=== PATIENT | male | born 1945 | race Caucasian/White ===

== ENCOUNTER 2018-01-04 09:02 | Inpatient (IN) | payer BC ==
[2018-01-02 17:07] LABS: BASOPHILS % 0.4 % (0.0-1.0); EOSINOPHILS # (AUTO) 0.2 (0.0-0.4); EOSINOPHILS % 1.9 % (0.0-6.0); HEMATOCRIT 32.2 % (38.2-49.6); HEMOGLOBIN 10.3 g/dL (14.0-18.0); LYMPHOCYTES # (AUTO) 2.1 (1.0-3.2); LYMPHOCYTES % 19.9 % (18.0-39.1); MEAN CORPUSCULAR HEMOGLOBIN 29.3 pg (28-32); MEAN CORPUSCULAR VOLUME 91.5 fL (81-99); MONOCYTES % 9.4 % (4.4-11.3); NEUTROPHILS % 65.8 % (38.7-80.0); PLATELET COUNT 225 x10e3/uL (140-360); RED BLOOD COUNT 3.52 x10e6/uL (4.3-5.7)
--- NOTE | 2018-01-02 17:07 | Diagnostic Imaging Report ---
PROCEDURE: Frontal and lateral views of the chest. COMPARISON: 02/21/2014 INDICATIONS: PRE-OP FINDINGS: Lines/tubes: None. Lungs: The lung volumes are low. There is basilar subsegmental atelectasis. Pleura: There is no pleural effusion or pneumothorax. Heart and mediastinum: The heart is enlarged. The aorta is tortuous. Bones: No acute bony abnormality. Compression deformity of a lower thoracic vertebral body with at least 50% height loss. This is unchanged since at least 2013. IMPRESSION: No evidence of infection or edema. Dictated by: Tico Lou M.D. on 01/02/2018 at 17:08 Electronically approved by: Tico Lou M.D. on 01/02/2018 at 17:08
[2018-01-02 17:24] LABS: ANION GAP 12.2 mmol/L (8-16); BLOOD UREA NITROGEN 17 mg/dL (7-26); BUN/CREATININE RATIO 17 (6-25); CALCIUM 9.6 mg/dL (8.4-10.2); CARBON DIOXIDE 32 mmol/L (22-29); CHLORIDE 101 mmol/L (98-107); EST GLOMERULAR FILTRATION RATE > 60 ML/MIN (60-); GLUCOSE 115 mg/dL (74-118); POTASSIUM 4.2 mmol/L (3.5-5.1); SODIUM 141 mmol/L (136-145)
[2018-01-02 17:52] LABS: EOSINOPHILS % (MANUAL) 4 % (0-7); HYPOCHROMASIA SLIGHT; LYMPHOCYTES % (MANUAL) 17 % (19-48); MONOCYTES % (MANUAL) 7 % (3.4-9.0); NEUTROPHILS % (MANUAL) 72 % (40-74); NUCLEATED RED BLOOD CELLS 3; PLATELET MORPHOLOGY COMMENT NORMAL; RBC MORPHOLOGY COMMENT NORMAL
[2018-01-02 17:53] LABS: PLATELET ESTIMATE ADEQUATE
[~2018-01-04] VITALS: Ht 167.6 cm; Wt 78.5 kg
[~2018-01-04 09:02] MED LIST: ATENOLOL100 MG PO; ATORVASTATIN CA40 MG PO; BENTYL10 MG PO; CALTRATE 600 +1 EACH PO; CEFAZOLIN SOD 2 GM/D5W 50ML 50 ML IV ONE; CENTRUM SILVER1 EAC1 PO; CIPRO500 MG PO; CLINDAMYCIN HC150 MG PO; GABAPENTIN300 MG PO; LISINOPRIL40 MG PO; LOVENOX30 MG/0.3 SC; MAGNESIUM CITR100 GM PO; MAGNESIUM OXID400 MG PO; NORCO 5-325 TA1 EACH PO; PENTASA500 MG PO; PRAVASTATIN SOD40 MG PO; PRILOSEC OTC20 MG PO; PRILOSEC20 MG PO; vicodin PO
--- OUTSIDE RECORDS SUMMARY | 2018-01-04 09:04 | XMS REPORT ---
[facility] Address Unknown Phone Unavailable Care Team Providers Care Pulp Mill Team Leader Name Role Phone GALLO SONG Unavailable Unavailable Problems This patient has no known problems. Allergies, Adverse Reactions, Alerts This patient has no known allergies or adverse reactions. Medications This patient has no known medications. Results Test Description Test Time Test Comments Text Results Atomic Results Result Comments CHEST 2 VIEWS [place] [address] Patient Name: MAY NYE MR #: [id number] : 1945 Age/Sex: 72/M Req #: [id number] Adm Physician: Ordered by: GALLO SONG DPM Report #: [id number] Location: OR Room/Bed: Procedure: [id number] DX/CHEST 2 VIEWS Exam Date: 01/02/18 Exam Time: 1656 REPORT STATUS: Signed PROCEDURE: Frontal and lateral views of the chest. COMPARISON: 02/21/2014 INDICATIONS: PRE-OP FINDINGS: Lines/tubes: None. Lungs: The lung volumes are low. There is basilar subsegmental atelectasis. Pleura: There is no pleural effusion or pneumothorax. Heart and mediastinum: The heart is enlarged. The aorta is tortuous. Bones: No acute bony abnormality. Compression deformity of a lower thoracic vertebral body with at least 50% height loss. This is unchanged since at least 2013. IMPRESSION: No evidence of infection or edema. Dictated by: Nieves Lou M.D. on 01/02/2018 at 17:08 Electronically approved by: Nieves Lou M.D. on 01/02/2018 at 17:08 Dictated By: NIEVES LOU MD 07 Transcribed By: ELIO on 01/02/181707 COPY TO: GALLO SONG DPM
[2018-01-04] MEDS ORDERED: DEXAMETHASONE SOD PHOS INJ 4 MG/ML VIAL ONE (09:48)
[2018-01-04] MEDS ORDERED: BUPIVACAINE HCL 0.5% 10ML MPF VIAL INJ ONE (09:48)
[2018-01-04] MEDS ORDERED: MUPIROCIN 2% OINT 22 GM TUBE ONE (09:48)
[2018-01-04 13:25] VITALS: BP 145/67
[2018-01-04 14:20] VITALS: BP 145/67
[2018-01-04 15:03] VITALS: BP 145/67
[2018-01-04] MEDS ORDERED: VANCOMYCIN 1GM/NS 250 ML 250 ML IV SCH ×2 (15:45→16:45)
[2018-01-04] MEDS ORDERED: BISMUTH SUBSALICYLATE 262 MG/15 ML 8OZ BTL PO PRN (15:45)
[2018-01-04] MEDS ORDERED: HYDROCODONE/APAP 5MG-325MG TAB PO PRN ×4 (15:45→17:15)
[2018-01-04 16:12] VITALS: BP 122/61
[2018-01-04] MEDS ORDERED: BISMUTH SUBSALICYLATE 262 MG TAB PO PRN (16:30)
[2018-01-04] MEDS ORDERED: LISINOPRIL 20 MG TAB PO SCH (17:00)
[2018-01-04] MEDS ORDERED: NON-FORMULARY MEDICATION (Lisinopril 40 MG) PO SCH (17:00)
[2018-01-04] MEDS ORDERED: GABAPENTIN 300 MG CAP PO SCH (17:00)
--- NOTE | 2018-01-04 17:05 | Diagnostic Imaging Report ---
PROCEDURE: A single AP view of the chest. COMPARISON: Chest radiograph 01/02/2018 INDICATIONS: PICC LINE PLACEMENT/ POST OP SURGERY BILATERAL FOOT AMPUTATED FINDINGS: Lungs, pleura, cardiomediastinal silhouette, bones, and soft issues are unchanged. IMPRESSION: 1. Interval placement of a right upper extremity PICC with tip overlying the cavoatrial junction. 2. Otherwise, no significant changes from 01/02/2018. Dictated by: Todd Meng M.D. on 01/04/2018 at 17:06 Electronically approved by: Todd Meng M.D. on 01/04/2018 at 17:06
[2018-01-04] MEDS: GABAPENTIN 300 MG CAP PO SCH (17:07)
[2018-01-04] MEDS: CEFEPIME HCL 1 GM VIAL IV SCH (17:07)
[2018-01-04] MEDS: LISINOPRIL 20 MG TAB PO SCH (17:08)
[2018-01-04] MEDS ORDERED: DESFLURANE 240 ML BTL INH ONE (17:40)
[2018-01-04] MEDS ORDERED: LIDOCAINE HCL 2% LOCAL INJ 5 ML SDV VIAL INJ ONE (17:40)
[2018-01-04] MEDS ORDERED: PROPOFOL IV EMULSION 10 MG/ML 20 ML VIAL ONE (17:40)
[2018-01-04] MEDS ORDERED: MIDAZOLAM HCL 2 MG/2 ML VIAL ONE (17:56)
[2018-01-04] MEDS ORDERED: FENTANYL CITRATE/PF 100MCG/2 ML INJ ONE (17:56)
--- NOTE | 2018-01-04 17:59 | Consultation ---
DATE OF CONSULTATION: January 04, 2018 INFECTIOUS DISEASE CONSULTATION REASON FOR CONSULTATION: Recommendation for antibiotic. HISTORY OF PRESENT ILLNESS: This is a patient who is a very pleasant 72-year-old white male with history of hypertension. He was admitted by Dr. Issa for infection of his foot. The patient has no fever, no chills, no nausea, no vomiting. He was diagnosed with osteo of the 2nd and 3rd toes of the left foot. The patient was admitted for a surgical debridement. His primary care is Dr. Pugh. PAST MEDICAL HISTORY: disease, skin cancer, hypercholesterolemia, gout, high blood pressure. PAST SURGICAL HISTORY: Denies. ALLERGIES: NKA. SOCIAL HISTORY: There is no smoking, drug abuse, alcohol abuse. FAMILY HISTORY: Otherwise unremarkable. REVIEW OF SYSTEMS HEENT: Negative. PULMONARY: Negative. CARDIAC: Negative. GENITOURINARY: Negative. SKIN: There is no other rash. Had an MRI done on the patient, which showed osteomyelitis of the 2nd middle phalanx and residual 2nd distal phalanx. Patient was admitted. He was going for debridement. Infectious Disease was consulted. When I saw the patient, he was lying in bed and comfortable. He has no complaints. He denies any trauma. Apparently he has been dealing with this foot infection for some time as an outpatient without any improvement. PHYSICAL EXAMINATION GENERAL: He is currently alert, oriented, does not seem to be in acute distress. VITAL SIGNS: Stable. Currently afebrile. HEENT: He does not appear icteric. NECK: Supple. CHEST: Clear. HEART: S1 and S2. No S3 or S4, no murmur. ABDOMEN: Soft. EXTREMITIES: The foot: He underwent surgery today. I do not have the full details. IMPRESSION 1. Osteomyelitis status post surgical debridement. Will put him on vancomycin and cefepime. Will get a sed rate, C-reactive protein. Will discontinue Zosyn. 2. Hypertension. 3. Neuropathy. Will follow. Job#: [id number] EV
[2018-01-04] MEDS ORDERED: PIPER-TAZ 3.375 GM 50 ML IV SCH ×3 (18:00)
[2018-01-04 20:00] VITALS: BP 170/92
[2018-01-04 20:32] VITALS: BP 170/92
[2018-01-04] MEDS: ATORVASTATIN 40 MG TAB PO SCH (20:40)
[2018-01-04] MEDS: MORPHINE SULFATE 2 MG/ML SYR IV PRN (20:48)
[2018-01-04] MEDS ORDERED: NON-FORMULARY MEDICATION (Atorvastatin Calcium 40 MG) PO SCH (21:00)
[2018-01-04] MEDS ORDERED: ATORVASTATIN 40 MG TAB PO SCH (21:00)
[2018-01-05] VITALS (9 sets, daily range): BP systolic 157–184; BP diastolic 70–88
--- NOTE | 2018-01-05 00:36 | Operative Report ---
DATE OF PROCEDURE: January 04, 2018 ROOM: Outpatient direct admit, room to be determined. PREOPERATIVE DIAGNOSES 1. Osteomyelitis 2nd digit left foot. 2. Osteomyelitis 3rd digit right foot. 3. Rigidly contracted hammertoe 2nd digit right foot. POSTOPERATIVE DIAGNOSES 1. Osteomyelitis 2nd digit left foot. 2. Osteomyelitis 3rd digit right foot. 3. Rigidly contracted hammertoe 2nd digit right foot. TITLES OF OPERATION 1. Amputation 2nd digit left foot. 2. Amputation 3rd digit right foot. 3. Arthroplasty 2nd digit right foot. ANESTHESIA: General endotracheal. HEMOSTASIS: Ankle tourniquet 350 mmHg. PROCEDURE IN DETAIL: The patient taken to the operating room in a mildly sedated, placed upon the operating table in supine position. Following induction of general anesthetic, the left lower extremity was elevated to 60 degrees to exsanguinate before inflating the pneumatic tourniquet to 350 mmHg with good hemostasis. The left lower extremity was on the operating table prior to performing the following procedures. Procedure #1 is amputation of the 2nd digit of the left foot. Two converging incisions circumferentially hockey-stick shape at the circumferential base of the 2nd digit of left foot were performed. This revealed the significantly hypertrophic and dystrophic bone of the distal phalanx and the medial phalanx and the shaft proximal phalanx were all amputated, midshaft proximal phalanx of the 2nd digit left foot. This was done with oscillating saw and a combination of sharp and blunt dissection all superficial bleeders were electrocoagulated. Deep closure was 3-0 Vicryl, subcutaneous closure 4-0 Vicryl, and skin closure was 4-0 nylon. There were all done after copious irrigation. Prior to the irrigation, a bone culture was obtained of the distal phalanx. The distal phalanx was sent to pathology for further evaluation. Procedure #2 is amputation of the 3rd of the right foot. Similarly, an ankle tourniquet at 250 was elevated on the right side and hockey-stick shape circumferential incision was made surrounding the proximal interphalangeal joint of the right foot. The osteomyelitis was located at the distal phalanx and was cultured. After amputation with an oscillating saw, the area was irrigated. Copious amounts of sterile saline solution. Deep closure was 3-0 Vicryl and skin closure of 4-0 nylon. Human tissue allograft was used to facilitate healing and in a flowable form, it was injected into the base of the 2nd digit of the left foot and the 3rd digit of the right foot. At this point, attention was directed to the 2nd digit of the right foot, which was noted to be rigidly contracted and a pre-ulcerative lesion present on the dorsal aspect. A linear longitudinal incision made across head of the proximal phalanx. A transverse tenotomy was performed and the head of the proximal phalanx below the surgical site. Utilizing an oscillating saw, the head of the proximal phalanx was resected and the digit was realigned appropriately. The area was irrigated with copious amounts of sterile saline solution. Deep closure and tendon repair was 3-0 Vicryl, subcutaneous closure 4-0 Vicryl, and skin closure 4-0 nylon. The areas of surgery were then inspected for any further suspicious material, none being found. The appropriate mildly compressive dressings were applied utilizing Betadine splintage. This having been accomplished, release of the tourniquet showed a normal hyperemic flush to all remaining digits. Then, mildly compressive dressings were applied. Patient left the operating room with vital signs stable in apparent satisfactory condition, tolerating both anesthetic and procedure very well. He will be transferred first to the PACU and then, ultimately to the floor for further evaluation with medical management by Dr. Pugh and infectious disease consultation by Dr. Medina. At this point, due to the severity of the infection, I have recommended that minimum of 2 weeks IV antibiotic and he has been started on a broad-spectrum coverage. The patient will have a PICC line inserted on the floor and otherwise, to continue his routine home medications. He was transported appropriately with vital signs stable and in no apparent satisfactory issues. I will be following him while in-house. Job#: [id number]
[2018-01-05] MEDS ORDERED: VANCOMYCIN 1GM/NS 250 ML 250 ML IV SCH (04:30)
[2018-01-05] MEDS: CEFEPIME HCL 1 GM VIAL IV SCH ×2 (04:38→17:16)
[2018-01-05] MEDS: VANCOMYCIN 1GM/NS 250 ML 250 ML IV SCH ×2 (05:15→16:12)
[2018-01-05] MEDS ORDERED: SODIUM CHLORIDE 0.9% 250ML 250 ML ONE (05:23)
[2018-01-05 06:25] LABS: BASOPHILS % 0.4 % (0.0-1.0); EOSINOPHILS # (AUTO) 0.2 (0.0-0.4); EOSINOPHILS % 1.9 % (0.0-6.0); HEMATOCRIT 27.9 % (38.2-49.6); HEMOGLOBIN 9.1 g/dL (14.0-18.0); LYMPHOCYTES # (AUTO) 1.8 (1.0-3.2); LYMPHOCYTES % 22.8 % (18.0-39.1); MEAN CORPUSCULAR HEMOGLOBIN 29.5 pg (28-32); MEAN CORPUSCULAR HGB CONC 32.6 g/dL (31-35); MEAN CORPUSCULAR VOLUME 90.6 fL (81-99); MONOCYTES # (AUTO) 0.7 (0.2-0.8); MONOCYTES % 8.6 % (4.4-11.3); NEUTROPHILS # (AUTO) 5.1 (2.1-6.9); PLATELET COUNT 161 x10e3/uL (140-360); RED BLOOD COUNT 3.08 x10e6/uL (4.3-5.7); RED CELL DISTRIBUTION WIDTH 15.1 % (11.7-14.4)
[2018-01-05 06:52] LABS: ALANINE AMINOTRANSFERASE 14 IU/L (0-55); ALBUMIN 2.9 g/dL (3.5-5.0); ALBUMIN/GLOBULIN RATIO 0.9 (0.8-2.0); ALKALINE PHOSPHATASE 73 IU/L (40-150); BLOOD UREA NITROGEN 15 mg/dL (7-26); BUN/CREATININE RATIO 19 (6-25); CARBON DIOXIDE 29 mmol/L (22-29); CHLORIDE 104 mmol/L (98-107); CREATININE, SERUM 0.78 mg/dL (0.72-1.25); EST GLOMERULAR FILTRATION RATE > 60 ML/MIN (60-); GLUCOSE 86 mg/dL (74-118); SODIUM 141 mmol/L (136-145)
[2018-01-05] MEDS ORDERED: PANTOPRAZOLE SOD 40 MG TABEC PO SCH (07:30)
[2018-01-05] MEDS: PANTOPRAZOLE SOD 40 MG TABEC PO SCH (07:30)
[2018-01-05] MEDS: GABAPENTIN 300 MG CAP PO SCH ×2 (09:00→16:13)
[2018-01-05] MEDS: OYST-CAL-D 500MG TABLET PO SCH (09:00)
[2018-01-05] MEDS: OCUVITE PRESERVISION TABLET PO SCH (09:00)
[2018-01-05] MEDS ORDERED: MESALAMINE 500 MG CAPCR PO SCH (09:00)
[2018-01-05] MEDS: ATENOLOL 100 MG TAB PO SCH (09:00)
[2018-01-05] MEDS ORDERED: VITAMIN D3 PO SCH (09:00)
[2018-01-05] MEDS ORDERED: ATENOLOL 100 MG TAB PO SCH ×2 (09:00)
[2018-01-05] MEDS ORDERED: OCUVITE PRESERVISION TABLET PO SCH (09:00)
[2018-01-05] MEDS ORDERED: NON-FORMULARY MEDICATION (Omeprazole (Prilosec) 20 MG) PO SCH (09:00)
[2018-01-05] MEDS ORDERED: LUTEIN PO SCH (09:00)
[2018-01-05] MEDS ORDERED: MAGNESIUM OXIDE 400 MG TAB PO SCH (09:00)
[2018-01-05] MEDS ORDERED: CALCIUM CARBONATE PO SCH (09:00)
[2018-01-05] MEDS: LISINOPRIL 20 MG TAB PO SCH ×2 (09:00→16:13)
[2018-01-05] MEDS ORDERED: OYST-CAL-D 500MG TABLET PO SCH (09:00)
[2018-01-05] MEDS: MESALAMINE 500 MG CAPCR PO SCH (09:00)
[2018-01-05] MEDS ORDERED: MULTIVITAMIN W MINERALS PO SCH (09:00)
[2018-01-05] MEDS: MAGNESIUM OXIDE 400 MG TAB PO SCH (09:00)
[2018-01-05] MEDS ORDERED: [UNRECOGNIZED DRUG - OTHER] PO SCH (09:00)
[2018-01-05] MEDS: MORPHINE SULFATE 2 MG/ML SYR IV PRN (15:41)
[2018-01-05] MEDS ORDERED: CLONIDINE HCL 0.1 MG TAB PO PRN (16:30)
[2018-01-05] MEDS: METOPROLOL TARTRATE 50 MG TAB PO SCH (17:00)
[2018-01-05] MEDS: ATORVASTATIN 40 MG TAB PO SCH (21:48)
[2018-01-06 00:46] VITALS: BP 170/77
[2018-01-06] MEDS: VANCOMYCIN 1GM/NS 250 ML 250 ML IV SCH (04:52)
[2018-01-06] MEDS: CEFEPIME HCL 1 GM VIAL IV SCH (04:52)
[2018-01-06] MEDS: MORPHINE SULFATE 2 MG/ML SYR IV PRN (04:58)
[2018-01-06 06:12] VITALS: BP 165/97
[2018-01-06] MEDS: PANTOPRAZOLE SOD 40 MG TABEC PO SCH (07:30)
[2018-01-06] MEDS: MESALAMINE 500 MG CAPCR PO SCH (09:00)
[2018-01-06] MEDS: METOPROLOL TARTRATE 50 MG TAB PO SCH (09:00)
[2018-01-06] MEDS: OYST-CAL-D 500MG TABLET PO SCH (09:00)
[2018-01-06] MEDS: GABAPENTIN 300 MG CAP PO SCH (09:00)
[2018-01-06] MEDS: LISINOPRIL 20 MG TAB PO SCH (09:00)
[2018-01-06] MEDS: OCUVITE PRESERVISION TABLET PO SCH (09:00)
[2018-01-06] MEDS: ATENOLOL 100 MG TAB PO SCH (09:00)
[2018-01-06] MEDS: MAGNESIUM OXIDE 400 MG TAB PO SCH (09:00)
[2018-01-06 09:44] VITALS: BP 170/93
--- NOTE | 2018-01-06 14:01 | Consultation ---
DATE OF CONSULTATION: ROOM NUMBER: [id number] CHIEF COMPLAINT AND HISTORY OF CHIEF COMPLAINT: Mr. Kerns is a most pleasant 72-year-old gentleman with complaint of osteomyelitis of the second digit of the left foot as well as osteomyelitis of the third digit of the right foot and rigidly contracted hammertoe second digit right foot. This patient was admitted status post amputation for IV antibiotics and further workup. PATIENT'S HISTORY: This is a most pleasant 72-year-old gentleman with history of hypertension. He has had distal digital ulcerations as listed above for the past several months with open exposed bone and osteomyelitis of the second toe on the left foot and third toe on the right foot. The patient has a previous medical history which is positive for thyroid issues as well as hypercholesterolemia, gout and hypertension. The patient states that he has not had surgery other than on the lower extremities. 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 He ultimately had a stent applied. Patient has no history of smoking or drug abuse. REVIEW OF SYSTEMS HEENT: Negative. PULMONARY: Negative. CARDIAC: Negative. Well healed scars on the left leg. MRI that was done as outpatient showed osteomyelitis. The patient was admitted for debridement and IV antibiotics. The patient was seen today for a sterile dressing change which was done without complications. The wounds are well coapted and well healing. The right foot shows no erythema or drainage on the second or third toe. On the left second digit amputation site there is some redness with a well coapted surgical site. This may ultimately require further drainage but I would like to see how he does with IV antibiotics and local wound care prior to further intervention. PHYSICAL EXAMINATION OF LOWER EXTREMITIES VASCULAR STATUS: Patient has a mildly palpable pedal pulse, dorsalis pedis bilaterally. NEUROLOGIC: A loss of protective sensation is evidence by Davenport-Kisha monofilament testing. DERMATOLOGIC: The aforementioned lesions, musculoskeletal evaluation showed previous osteomyelitis which has now resulted in amputation on the third digit on the right foot and second digit on the left as well as an arthroplasty second digit right. DIAGNOSIS: Osteomyelitis status post debridement. He needs IV antibiotics for a minimum of 2 weeks, Dr. Medina in workup and will make recommendations with regards to IV antibiotics. The preliminary culture result shows Staphylococcus aureus but final results are not available yet. Patient understands he will likely need to stay in the hospital until we know which antibiotic to send him home on but he is anxious to go as soon as possible. He is otherwise to continue with monitoring of his medical condition and treatment of the hypertension by Dr. 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 Medina. I will follow him after discharge within 1 week in my office. Job#: [id number] MARIELENA
[2018-01-06 15:03] VITALS: BP 180/96
== END 2018-01-06 16:07 | disposition home or self-care (01) | DRG 502 ==
LOC: OR 09:02 → MED/SURG2 12:39
PROVIDERS: ADMIT Internal Medicine; ATTEND Internal Medicine
PROC: 0Y6T0Z3 Detachment at Right 3rd Toe, Low, Open Approach (ICD-10-PCS; 2018-01-04)
PROC: 0QBQ0ZZ Excision of Right Toe Phalanx, Open Approach (ICD-10-PCS; 2018-01-04)
PROC: 0Y6S0Z0 Detachment at Left 2nd Toe, Complete, Open Approach (ICD-10-PCS; principal; 2018-01-04 10:30)
PROC: 0L8V0ZZ Division of Right Foot Tendon, Open Approach (ICD-10-PCS; 2018-01-04 10:30)
DX: M86.8X7 Other osteomyelitis, ankle and foot (principal); G62.9 Polyneuropathy, unspecified; B95.61 Methicillin susceptible Staphylococcus aureus infection as the cause of diseases classified elsewhere; M20.41 Other hammer toe(s) (acquired), right foot; I10 Essential (primary) hypertension; M10.9 Gout, unspecified; Z95.820 Peripheral vascular angioplasty status with implants and grafts; Z85.828 Personal history of other malignant neoplasm of skin; R53.81 Other malaise; D64.9 Anemia, unspecified; E78.00 Pure hypercholesterolemia, unspecified
CPT/HCPCS: 36415; 36569; 71045; 71046; 76001; 80048; 80053; 80202; 85025; 87071; 87075; 87186; 87205; 88305; 88311; 93005; J0692; J1100; J2001; J2250; J2270; J3370; J7050

== ENCOUNTER 2018-02-02 11:53 | Inpatient (IN) | payer BC, MEDICARE ==
[~2018-02-02] VITALS: Ht 167.6 cm; Wt 76.3 kg
[2018-02-02] VITALS (7 sets, daily range): BP systolic 132–147; BP diastolic 73–91
[~2018-02-02 11:53] MED LIST changes: -CEFAZOLIN SOD 2 GM/D5W 50ML 50 ML IV ONE
[2018-02-02] MEDS ORDERED: IPRATROPIUM BROMIDE 0.02% 2.5 ML NEB NEB STA (11:56)
[2018-02-02] MEDS ORDERED: ALBUTEROL SULF 0.083% NEB SOLN 3 ML NEB NEB STA (11:56)
--- OUTSIDE RECORDS SUMMARY | 2018-02-02 11:57 | XMS REPORT | Continuity of Care Document ---
Author Author [facility] Organization [facility] Address [address] [place] [address] Phone Unavailable Care Team Providers Care Weight Control Lecturer Name Role Phone EFRAIN BORGES MD PCP Insurance Providers Guarantor May Kerns Address [address] [place] [address] Email [email or web address] Policy Number [id number] Subscriber's Name Melonie Kerns Relationship 01 Group Number [id number] Effective Date 17 Advance Directives Directive Response Recorded Date/Time Does the patient have an advance directive? No 01/04/18 2:20pm If yes, is advance directive on file with [facility]? No 02/20/14 8:00pm If not on file with [facility] will patient provide a copy? No 02/20/14 8:00pm Do you have a Directive to Physician? No 01/02/18 4:11pm Do you have a Medical Power of Farmworker Bulbs? No 01/02/18 4:11pm Do you have an out of hospital Do Not Resuscitate Order? No 01/02/18 4:11pm Do you have any special needs we should be aware of? No 01/02/18 4:11pm Do you have a support person here with you today? Yes 01/02/18 4:11pm Did patient receive Notice of Privacy Practices? Yes 01/02/18 4:11pm Did patient receive patient rights and responsibilities? Yes 01/02/18 4:11pm Problems No problem information available. Medications Current Home Medications Medication Dose Units Route Directions Days Qty Instructions Start Date Atenolol 100 Mg Tablet 100 Mg Oral Daily Atorvastatin Calcium 40 Mg Tablet 40 Mg Oral Bedtime Calcium Carbonate/Vitamin D3 (Caltrate 600 + D Chewable Tab) 1 Each Tab.chew 1 Tab Oral Daily Clindamycin Hcl 150 Mg Capsule 300 Mg Oral Three Times A Day Gabapentin 300 Mg Capsule 300 Mg Oral Twice A Day 60 Cap Lisinopril 40 Mg Tablet 40 Mg Oral Twice A Day Magnesium Oxide 400 Mg Tablet 200 Mg Oral Daily Mesalamine (Pentasa) 500 Mg Capcr 500 Mg Oral Daily Multivitamin W-Minerals/Lutein (Centrum Silver Tablet) 1 Each Tablet 1 Tab Oral Daily Omeprazole (Prilosec) 20 Mg Capsule.dr 20 Mg Oral Daily Past Home Medications Medication Directions Ordered Status Ciprofloxacin Hcl (Cipro) 500 Mg Tablet, 500 Mg Oral Twice A Day Discontinued Dicyclomine Hcl (Bentyl) 10 Mg Capsule, 10 Mg Oral Daily Discontinued Enoxaparin Sodium (Lovenox*) 30 Mg/0.3 Ml Inj, 30 Mg Subcutaneously Every 12 Hours Discontinued Enoxaparin Sodium (Lovenox*) 30 Mg/0.3 Ml Inj, 30 Mg Subcutaneously Twice A Day Discontinued Hydrocodone Bit/Acetaminophen (Verdi 5-325 Tablet) 1 Each Tablet, 1-2 Tab Oral Every 4-6 Hours as needed for Pain Discontinued Magnesium Citrate 100 Gm Powder, 200 Mg Oral Daily Discontinued Pravastatin Sodium 40 Mg Tablet, 40 Mg Oral Daily Discontinued Vicodin , 1 - 2 Tab Oral Every 4-6 Hours as needed Discontinued Social History Social History Problem Response Recorded Date/Time Onset Date Status Hx Psychiatric Problems No 01/04/2018 2:20pm Not Applicable Not Applicable Hx Eating Disorder No 01/04/2018 2:20pm Not Applicable Not Applicable Hx Substance Use Disorder No 01/04/2018 2:20pm Not Applicable Not Applicable Hx Depression No 01/04/2018 2:20pm Not Applicable Not Applicable Hx Alcohol Use N - SOCIAL DRINKER 8 BEERS A WEEK 01/04/2018 2:20pm Not Applicable Not Applicable Hx Substance Use Treatment No 01/04/2018 2:20pm Not Applicable Not Applicable Hx Physical Abuse No 01/04/2018 2:20pm Not Applicable Not Applicable Smoking Status Start Date Stop Date Former smoker Hospital Discharge Instructions No hospital discharge instruction information available. Plan of Care Discharge Date 01/06/18 4:07pm Disposition HOME, SELF-CARE Instructions/Education Provided Cellulitis Prescriptions See Medication Section Functional Status Query Response Date Recorded Assistive Devices Straight Cane January 04, 2018 2:20pm Ambulation Ability Independent January 04, 2018 2:20pm Toileting Ability Minimum Assistance January 05, 2018 6:16pm Allergies, Adverse Reactions, Alerts Allergen Type Severity Reaction Status Last Updated Promethazine Allergy Mild FEELS LIKE ANTS ALL OVER BODY Active 01/02/18 Immunizations No immunization information available. Vital Signs Acute Vital Signs Vital Response Date/Time Temperature (Fahrenheit) 96.8 degrees F (97.6 - 99.5) 01/06/2018 3:03pm Pulse Pulse Rate (adult) 78 bpm (60 - 90) 01/06/2018 3:03pm Respiratory Rate 20 bpm (12 - 24) 01/06/2018 3:03pm Blood Pressure 180/96 mm Hg 01/06/2018 3:03pm Height 5 ft 6 in 01/04/2018 2:20pm Weight 173 lb 01/04/2018 2:20pm Body Mass Index 27.9 kg/m^2 01/04/2018 2:20pm Results Laboratory Results Test Name Result Units Flags Reference Collection Date/Time Result Date/ Time Comments White Blood Count 7.77 x10e3/uL 4.8-10.8 01/05/2018 6:00am 01/05/2018 6 :29am Red Blood Count 3.08 x10e6/uL L 4.3-5.7 01/05/2018 6:00am 01/05/2018 6: 29am Hemoglobin 9.1 g/dL L 14.0-18.0 01/05/2018 6:00am 01/05/2018 6:29am Hematocrit 27.9 % L 38.2-49.6 01/05/2018 6:00am 01/05/2018 6:29am Mean Corpuscular Volume 90.6 fL 81-99 01/05/2018 6:00am 01/05/2018 6: 29am Mean Corpuscular Hemoglobin 29.5 pg 28-32 01/05/2018 6:00am 01/05/2018 6:29am Mean Corpuscular Hemoglobin Concent 32.6 g/dL 31-35 01/05/2018 6:00am 01/05/2018 6:29am Red Cell Distribution Width 15.1 % H 11.7-14.4 01/05/2018 6:00am 2017 6:29am Platelet Count 161 x10e3/uL 140-360 01/05/2018 6:00am 01/05/2018 6: 29am Neutrophils (%) (Auto) 65.0 % 38.7-80.0 01/05/2018 6:00am 01/05/2018 6: 29am Lymphocytes (%) (Auto) 22.8 % 18.0-39.1 01/05/2018 6:00am 01/05/2018 6: 29am Monocytes (%) (Auto) 8.6 % 4.4-11.3 01/05/2018 6:00am 01/05/2018 6: 29am Eosinophils (%) (Auto) 1.9 % 0.0-6.0 01/05/2018 6:00am 01/05/2018 6: 29am Basophils (%) (Auto) 0.4 % 0.0-1.0 01/05/2018 6:00am 01/05/2018 6:29am IM GRANULOCYTES % 1.3 % H 0.0-1.0 01/05/2018 6:00am 01/05/2018 6:29am Neutrophils # (Auto) 5.1 2.1-6.9 01/05/2018 6:00am 01/05/2018 6:29am Lymphocytes # (Auto) 1.8 1.0-3.2 01/05/2018 6:00am 01/05/2018 6:29am Monocytes # (Auto) 0.7 0.2-0.8 01/05/2018 6:00am 01/05/2018 6:29am Eosinophils # (Auto) 0.2 0.0-0.4 01/05/2018 6:00am 01/05/2018 6:29am Basophils # (Auto) 0.0 0.0-0.1 01/05/2018 6:00am 01/05/2018 6:29am Absolute Immature Granulocyte (auto 0.10 x10e3/uL 0-0.1 01/05/2018 6: 00am 01/05/2018 6:29am Differential Total Cells Counted 100 01/02/2018 5:00pm 01/02/2018 5 :53pm Neutrophils % (Manual) 72 % 40-74 01/02/2018 5:00pm 01/02/2018 5:53pm Lymphocytes % (Manual) 17 % L 19-48 01/02/2018 5:00pm 01/02/2018 5:53pm Monocytes % (Manual) 7 % 3.4-9.0 01/02/2018 5:00pm 01/02/2018 5:53pm Eosinophils % (Manual) 4 % 0-7 01/02/2018 5:00pm 01/02/2018 5:53pm Nucleated Red Blood Cells 3 01/02/2018 5:00pm 01/02/2018 5:53pm Platelet Estimate ADEQUATE 01/02/2018 5:00pm 01/02/2018 5:53pm Platelet Morphology Comment NORMAL 01/02/2018 5:00pm 01/02/2018 5: 53pm Hypochromasia SLIGHT 01/02/2018 5:00pm 01/02/2018 5:53pm Red Cell Morphology Comment NORMAL 01/02/2018 5:00pm 01/02/2018 5: 53pm Sodium Level 141 mmol/L 136-145 01/05/2018 6:00am 01/05/2018 6:55am Potassium Level 4.0 mmol/L 3.5-5.1 01/05/2018 6:00am 01/05/2018 6:55am Chloride Level 104 mmol/L 98-107 01/05/2018 6:00am 01/05/2018 6:55am Carbon Dioxide Level 29 mmol/L 22-29 01/05/2018 6:00am 01/05/2018 6: 55am Anion Gap 12.0 mmol/L 8-16 01/05/2018 6:00am 01/05/2018 6:55am Blood Urea Nitrogen 15 mg/dL 7-01/05/2018 6:00am 01/05/2018 6:55am Creatinine 0.78 mg/dL 0.72-1.25 01/05/2018 6:00am 01/05/2018 6:55am BUN/Creatinine Ratio 19 6-25 01/05/2018 6:00am 01/05/2018 6:55am Estimat Glomerular Filtration Rate > 60 ML/MIN 60- 01/05/2018 6:00am 6:55am Ranges were taken from the National Kidney Disease Education Program and the National Kid[employer] Foundation literature. Reference ranges: 60 or greater: Normal 16-59 (for 3 consecutive months): Chronic kidney disease 15 or less: Kidney failure Glucose Level 86 mg/dL 74-118 01/05/2018 6:00am 01/05/2018 6:55am Calcium Level 9.0 mg/dL 8.4-10.2 01/05/2018 6:00am 01/05/2018 6:55am Total Bilirubin 0.6 mg/dL 0.2-1.2 01/05/2018 6:00am 01/05/2018 6:55am Aspartate Amino Transf (AST/SGOT) 19 IU/L 5-34 01/05/2018 6:00am 2017 6:55am Alanine Aminotransferase (ALT/SGPT) 14 IU/L 0-55 01/05/2018 6:00am 08/2018 6:55am Total Protein 6.1 g/dL L 6.5-8.1 01/05/2018 6:00am 01/05/2018 6:55am Albumin 2.9 g/dL L 3.5-5.0 01/05/2018 6:00am 01/05/2018 6:55am Globulin 3.2 g/dL 2.3-3.5 01/05/2018 6:00am 01/05/2018 6:55am Albumin/Globulin Ratio 0.9 0.8-2.0 01/05/2018 6:00am 01/05/2018 6: 55am Alkaline Phosphatase 73 IU/L 40-150 01/05/2018 6:00am 01/05/2018 6: 55am Vancomycin Level Trough 10.0 ug/mL 5.0-10.0 01/05/2018 3:30pm 2017 3:58pm Microbiology Results Procedure Source Organism/Result Collection Date/Time Result Date/Time Result Status Wound Culture Foot, Left STAPHYLOCOCCUS AUREUS 01/04/2018 11:00am 2017 10:01am Preliminary Procedures Procedure Status Date Provider(s) X-ray of chest, two views Active 01/02/18 GALLO SONG DPM Encounters Encounter Location Arrival/Admit Date Discharge/Depart Date Attending Provider Discharged Inpatient [facility] 01/04/18 12:39pm 4:07pm EFRAIN BORGES MD
[2018-02-02] MEDS ORDERED: METHYLPREDNISOLONE SOD SUCC 125 MG/2ML VIAL IV ONE (12:00)
[2018-02-02] MEDS ORDERED: ALBUTEROL SULF 0.083% NEB SOLN 3 ML NEB ONE (12:10)
[2018-02-02] MEDS ORDERED: MAGNESIUM SULFATE 2GM/50ML 50 ML IV ONE (12:15)
[2018-02-02] MEDS ORDERED: FUROSEMIDE INJ 10 MG/ML 4 ML VIAL IV NR (12:15)
--- NOTE | 2018-02-02 12:28 | Diagnostic Imaging Report ---
PROCEDURE: CHEST SINGLE (PORTABLE) COMPARISON: Patients [facility], DX, CHEST XRAY LINE PLACEMENT, 01/04/2018, 16:54. INDICATIONS: SHORTNESS OF BREATH. RECENT FOOT SURGERY FINDINGS: LUNGS: Increased pulmonary vascularity compatible with edema that is new. Bibasilar opacities likely atelectasis. PLEURA: No effusions or pneumothorax. HEART \T\ MEDIASTINUM: The heart is within normal size-limits. There is a right-sided PICC line. BONES \T\ SOFT TISSUES: No acute findings. CONCLUSION: Increased pulmonary vascularity compatible with edema Terry Degroot D.O. Dictated by: Terry Degroot D.O. on 02/02/2018 at 12:30 Electronically approved by: Terry Degroot D.O. on 02/02/2018 at 12:30
[2018-02-02 12:31] LABS: BASOPHILS % 0.4 % (0.0-1.0); EOSINOPHILS # (AUTO) 0.1 (0.0-0.4); HEMATOCRIT 28.4 % (38.2-49.6); HEMOGLOBIN 8.8 g/dL (14.0-18.0); LYMPHOCYTES # (AUTO) 0.5 (1.0-3.2); LYMPHOCYTES % 5.3 % (18.0-39.1); MEAN CORPUSCULAR HEMOGLOBIN 27.5 pg (28-32); MEAN CORPUSCULAR VOLUME 88.8 fL (81-99); MONOCYTES # (AUTO) 0.8 (0.2-0.8); MONOCYTES % 7.9 % (4.4-11.3); NEUTROPHILS # (AUTO) 8.2 (2.1-6.9); NEUTROPHILS % 84.3 % (38.7-80.0); PLATELET COUNT 210 x10e3/uL (140-360); RED CELL DISTRIBUTION WIDTH 15.9 % (11.7-14.4)
[2018-02-02 12:39] LABS: INR 1.29; PROTHROMBIN TIME 15.1 seconds (11.9-14.5)
[2018-02-02 12:40] LABS: PARTIAL THROMBOPLASTIN TIME 41.5 seconds (23.8-35.5)
[2018-02-02 12:48] LABS: ALANINE AMINOTRANSFERASE 16 IU/L (0-55); ALBUMIN 3.2 g/dL (3.5-5.0); ALBUMIN/GLOBULIN RATIO 0.7 (0.8-2.0); ALKALINE PHOSPHATASE 66 IU/L (40-150); BLOOD UREA NITROGEN 24 mg/dL (7-26); BUN/CREATININE RATIO 22 (6-25); CALCIUM 9.2 mg/dL (8.4-10.2); CARBON DIOXIDE 23 mmol/L (22-29); CHLORIDE 108 mmol/L (98-107); CREATINE KINASE 31 IU/L (30-200); CREATININE, SERUM 1.07 mg/dL (0.72-1.25); EST GLOMERULAR FILTRATION RATE > 60 ML/MIN (60-); GLUCOSE 161 mg/dL (74-118); LIPASE 27 U/L (8-78); MAGNESIUM 1.5 MG/DL (1.3-2.1); SODIUM 140 mmol/L (136-145)
[2018-02-02 12:52] LABS: B-TYPE NATRIURETIC PEPTIDE2 814.6 pg/mL (0-100)
[2018-02-02 13:07] LABS: THYROID STIMULATING HORMONE 0.948 uIU/mL (0.350-4.940)
[2018-02-02] MEDS ORDERED: IBUPROFEN 600 MG TAB PO STA (13:10)
[2018-02-02 13:25] LABS: MONOCYTES % (MANUAL) 8 % (3.4-9.0)
[2018-02-02 13:27] LABS: LYMPHOCYTES % (MANUAL) 5 % (19-48); NEUTROPHILS % (MANUAL) 87 % (40-74)
[2018-02-02 13:50] LABS: ANISOCYTOSIS SLIGHT; HYPOCHROMASIA SLIG; PLATELET ESTIMATE ADEQUATE; PLATELET MORPHOLOGY COMMENT NORMAL
[2018-02-02 13:51] LABS: RBC MORPHOLOGY COMMENT NORMAL
[2018-02-02] MEDS ORDERED: FERROUS SULFAT324 MG PO (13:57)
[2018-02-02] MEDS ORDERED: DICYCLOMINE HCL20 MG PO (13:57)
[2018-02-02 14:44] LABS: ABG HCO3 22 mmol/L (23-28); ABG PCO2 47 mmHg (41-51); ABG PH 7.28 (7.31-7.41); ABG PO2 335 mmHg (80-105)
[2018-02-02] MEDS ORDERED: SODIUM CHLORIDE 0.9% 50ML 50 ML ONE (14:45)
[2018-02-02] MEDS ORDERED: IOPAMIDOL 370 MG/ML 200 ML INFUS..BTL INJ ONE (14:46)
[2018-02-02 16:14] LABS: ABG PCO2 48 mmHg (41-51); ABG PH 7.29 (7.31-7.41)
[2018-02-02 16:15] LABS: ABG HCO3 23 mmol/L (23-28); ABG PO2 35 mmHg (80-105)
[2018-02-02 16:36] LABS: BILIRUBIN,URINE NEGATIVE (NEGATIVE); CLARITY,URINE SL CLOUDY (CLEAR); COLOR,URINE YELLOW (YELLOW); KETONES,URINE NEGATIVE (NEGATIVE); LEUKOCYTE ESTERASE ,URINE NEGATIVE (NEGATIVE); NITRITE,URINE NEGATIVE (NEGATIVE); PROTEIN,URINE DIPSTICK NEGATIVE (NEGATIVE); URINE UROBILINOGEN 0.2 mg/dL (0.2 - 1)
[2018-02-02 16:52] LABS: BACTERIA,URINE FEW /HPF; EPITHELIAL CELLS,URINE MODERATE /LPF
--- NOTE | 2018-02-02 17:04 | Diagnostic Imaging Report ---
PROCEDURE: CT scan of the chest WITH intravenous contrast, using a pulmonary angiogram protocol. TECHNIQUE: The chest was scanned utilizing a multidetector helical scanner from the lung apex through the level of the adrenal glands after the IV administration of 69 cc of Isovue 370. Coronal and sagittal multiplanar reformations were obtained. Pulmonary angiogram protocol was performed. COMPARISON: None. INDICATIONS: Shortness of breath. FINDINGS: Lines/tubes: None. Lungs and Airways: Bilateral lower lobe atelectasis. Mild areas of non-enhancement, worrisome for aspiration or retained fluid. Mild dependent atelectasis in the right middle, right, and left upper lobes. Pleura: Small bilateral pleural effusions. Heart and mediastinum: The thyroid gland is normal. No axillary lymphadenopathy. 1.2 cm prevascular lymph node (series 2 image 43). 1.6 cm precarinal lymph node (series 2 image 40). 1.7 cm right hilar lymph node (series 2 image 6). 1.2 cm left hilar lymph node (series 2 image 52). The heart and pericardium are within normal limits. Significant coronary artery calcifications. Plan pulmonary artery measures 3.2 cm. Ascending aorta measures 3.2 cm. Aortic arch measures 3.4 cm. Proximal descending thoracic aorta measures 3.1 cm. Significant soft plaque at the aortic arch with additional calcified plaques. Soft tissues: Normal. Abdomen: Limited contrast-enhanced views of the upper abdomen show no abnormality within the visualized liver, spleen, pancreas, or kidneys. The adrenal glands are normal. Small sliding hiatal hernia. Bones: T11 compression deformity with roughly 50% height loss anteriorly. Mild compression wedging of T12 vertebral body. Healed previous bilateral rib fracture deformities. IMPRESSION: 1. No pulmonary emboli. 2. Small bilateral pleural effusion with associated atelectasis. With mediastinal and hilar lymph nodes, there is likely a superimposed component of infection in both lower lobes. 3. Small sliding hiatal hernia. 4. T11 compression deformity with 50% height loss. Dictated by: Ravi Mercado M.D. on 02/02/2018 at 14:56 Electronically approved by: Ravi Mercado M.D. on 02/02/2018 at 17:06
[2018-02-02] MEDS ORDERED: SODIUM CHLORIDE FLUSH 10 ML SYR INJ PRN (17:30)
[2018-02-02] MEDS ORDERED: AZITHROMYCIN 500MG/NS 250 ML 250 ML IV SCH (18:00)
[2018-02-02] MEDS: SODIUM CHLORIDE 0.9% 1000ML 1,000 ML IV SCH (18:25)
[2018-02-02] MEDS: CEFTAROLINE FOSAMIL ACETATE 400 MG in SODIUM CHLORIDE 0.9% 250ML 250 ML IV SCH (18:25)
[2018-02-02] MEDS ORDERED: HYDROCODONE/APAP 5MG-325MG TAB ONE (19:02)
[2018-02-02] MEDS: HYDROCODONE/APAP 5MG-325MG TAB PO PRN (19:08)
[2018-02-02] MEDS: IPRATROPIUM BROMIDE 0.02% 2.5 ML NEB NEB SCH (19:25)
[2018-02-02] MEDS: ALBUTEROL SULF 0.083% NEB SOLN 3 ML NEB NEB SCH ×2 (19:25→22:55)
[2018-02-02] MEDS ORDERED: DEXTROSE 50% SYRINGE 50 ML IV PRN (22:00)
[2018-02-03] VITALS (58 sets, daily range): BP systolic 92–161; BP diastolic 45–95
[2018-02-03] MEDS: IPRATROPIUM BROMIDE 0.02% 2.5 ML NEB NEB SCH ×4 (02:30→18:50)
[2018-02-03] MEDS: ALBUTEROL SULF 0.083% NEB SOLN 3 ML NEB NEB SCH ×6 (02:30→22:40)
--- NOTE | 2018-02-03 05:42 | Diagnostic Imaging Report ---
CHEST SINGLE (PORTABLE), 02/03/2018 5:00 AM Technique: CHEST SINGLE (PORTABLE) Comparison: CT from 02/02/2018 Clinical history: Pneumonia Findings: See Impression Impression: 1. Lines/Tubes: Right PICC tip at the cavoatrial junction. 2. Mildly enlarged cardiomediastinal silhouette. 3. Bibasilar opacities, favor atelectasis or consolidation and layering pleural fluid. Signed by: Dr Trisha Bird MD on 02/03/2018 5:39 AM
[2018-02-03] MEDS: INSULIN REGULAR, HUMAN 100 UNIT/1 ML 3ML VIAL SQ SCH ×5 (05:45→20:51)
[2018-02-03] MEDS: SODIUM CHLORIDE 0.9% 1000ML 1,000 ML IV SCH (05:45)
[2018-02-03 06:13] LABS: BASOPHILS % 0.1 % (0.0-1.0); LYMPHOCYTES # (AUTO) 0.7 (1.0-3.2); LYMPHOCYTES % 8.7 % (18.0-39.1); MEAN CORPUSCULAR HEMOGLOBIN 27.2 pg (28-32); MEAN CORPUSCULAR HGB CONC 30.8 g/dL (31-35); MEAN CORPUSCULAR VOLUME 88.4 fL (81-99); MONOCYTES # (AUTO) 0.3 (0.2-0.8); MONOCYTES % 4.2 % (4.4-11.3); NEUTROPHILS # (AUTO) 6.8 (2.1-6.9); NEUTROPHILS % 86.4 % (38.7-80.0); PLATELET COUNT 192 x10e3/uL (140-360); RED BLOOD COUNT 2.94 x10e6/uL (4.3-5.7); RED CELL DISTRIBUTION WIDTH 15.8 % (11.7-14.4)
[2018-02-03] MEDS: CEFTAROLINE FOSAMIL ACETATE 400 MG in SODIUM CHLORIDE 0.9% 250ML 250 ML IV SCH (06:34)
[2018-02-03 06:44] LABS: ANION GAP 13.9 mmol/L (8-16); BLOOD UREA NITROGEN 27 mg/dL (7-26); BUN/CREATININE RATIO 30 (6-25); CALCIUM 8.8 mg/dL (8.4-10.2); CARBON DIOXIDE 22 mmol/L (22-29); CHLORIDE 110 mmol/L (98-107); CREATININE, SERUM 0.89 mg/dL (0.72-1.25); EST GLOMERULAR FILTRATION RATE > 60 ML/MIN (60-); GLUCOSE 142 mg/dL (74-118); POTASSIUM 4.9 mmol/L (3.5-5.1); SODIUM 141 mmol/L (136-145)
[2018-02-03] MEDS ORDERED: AZITHROMYCIN 500MG/SOD CHL 0.9% 250ML BAG IV SCH (09:00)
[2018-02-03] MEDS: HYDROCODONE/APAP 5MG-325MG TAB PO PRN ×2 (09:09→15:44)
[2018-02-03] MEDS: FUROSEMIDE INJ 10 MG/ML 4 ML VIAL IV SCH ×2 (11:00→20:50)
[2018-02-03] MEDS ORDERED: NON-FORMULARY MEDICATION (Omeprazole (Prilosec) 20 MG) PO SCH (11:45)
[2018-02-03] MEDS: PANTOPRAZOLE SOD 40 MG TABEC PO SCH (12:14)
--- NOTE | 2018-02-03 12:30 | Consultation ---
DATE OF CONSULTATION: February 03, 2018 REASON FOR CONSULTATION: Osteomyelitis of the foot. HISTORY OF PRESENT ILLNESS: Thank you so much asking me to see this patient. This is a patient who is well known to me from previous admission. He is a very pleasant 72-year-old gentleman who was diagnosed with osteomyelitis to the second digit of the left foot, osteomyelitis of the third digit on the right. The patient had contracted hammertoe of the second digit on the right foot. The patient was admitted on January 04. He was started on IV antibiotic and discharged home with IV antibiotic and he was supposed to discontinue the IV antibiotic today. He showed up my office yesterday complaining of shortness of breath. Patient was sent to the emergency room to be admitted. I did see him early hours of the morning today. When I saw the patient, he is mainly complaining of some chills, not feeling well, shortness of breath. The patient is otherwise doing well before all this. PAST MEDICAL HISTORY: Recently diagnosed osteomyelitis, underwent debridement, underwent partial toe amputation. He was on IV antibiotic as mentioned above recently. He also has history of hypertension. He had history of ulcerative colitis, history of left femur fracture, and history of osteoporosis. PAST SURGICAL HISTORY: As above, amputation of partial toe on the right third. ALLERGIES: NKA. SOCIAL HISTORY: He denies smoking, drug abuse, or alcohol use. FAMILY HISTORY: Hypertension. REVIEW OF SYSTEMS CONSTITUTIONAL: At the present time, he is mainly complaining of shortness of breath. He is on BiPAP. Generally, he is feeling a little bit sick. He has had no chills. HEENT: There is no visual changes, hearing changes. GI: There is no nausea, no vomiting, no diarrhea. CARDIAC: There is no arrhythmia. NEURO: No seizure activity. SKIN: There is no other rashes. JOINTS: There is erythema or edema. LABORATORY DATA: Reviewed. Sodium 141, potassium 4.9, creatinine 0.89, and calcium 9.2. Liver enzyme within normal limits. BNP was 814. Lipase 27. Chest CT reviewed. Had bibasilar opacities, atelectasis. PHYSICAL EXAMINATION GENERAL: He is currently alert, oriented, does not seem to be in acute distress. VITALS: Stable, afebrile. Temperature 98.1. HEENT: Normocephalic. NECK: Supple. CHEST: Few crackles at the bases. COR: S1, S2. No S3, S4, or murmur. ABDOMEN: Soft. Bowel sounds are present. No tenderness. EXTREMITIES: There is bilateral lower extremities edema. SKIN: No rash. IMPRESSION AND PLAN 1. Shortness of breath. I am concerned about fluid overload. We will stop IV fluid, give him Lasix 40 IV q.12. His BNP is elevated. We will consult Dr. Dover, cardiology. 2. Osteomyelitis treated. We will stop his antibiotic. We will stop his PICC line. 3. History of hypertension. 4. We will follow with you. Further recommendations to follow. Thank you for asking me to see this patient. Job#: [id number] MAHIN
[2018-02-03] MEDS: MESALAMINE 500 MG CAPCR PO SCH (13:30)
[2018-02-03] MEDS ORDERED: NIFEDIPINE ER90 MG PO (13:32)
[2018-02-03 14:16] LABS: CHOL/HDL RATIO 3.5 (3.9-4.7); CHOLESTEROL 121 MD/DL (0-199); CREATINE KINASE 24 IU/L (30-200); HDL CHOLESTEROL 35 MG/DL (40-60); LDL CHOLESTEROL 73 MG/DL (60-130); TRIGLYCERIDES 64 MG/DL (0-149)
--- NOTE | 2018-02-03 15:10 | Consultation ---
DATE OF CONSULTATION: February 03, 2018 PULMONARY CONSULTATION A patient of Dr. Hills, Dr. Pugh, Dr. Medina, Dr. Issa. An unfortunate 72-year-old gentleman admitted with shortness of breath for several days. History of osteomyelitis of the toes status post amputations. He denies history of heart failure. History of headaches, history of dyspnea, history of Crohn's in remission after 12 years. NO KNOWN ALLERGIES. His medications at home included IV antibiotic presumably as he has a PICC line, clindamycin orally, iron, atenolol, Lipitor, calcium, dicyclomine, Neurontin, lisinopril, magnesium, Pentasa, multivitamins and Prilosec. He has had foot surgery, hernia surgery, L4-5 laminectomy, repair of a femur and repair of a left tibia related to falls at home. 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 Did smoke, quit 12 years ago, smoked a pack-plus a day for 20 years. Family history is positive for carcinoma of the lung in father and heart failure mother. He does have a history of loud snoring though denies daytime hypersomnolence. He has chronic edema. PHYSICAL EXAMINATION VITAL SIGNS: Temperature 97.8, blood pressure 114/51, respirations 18. He is currently on BiPAP. Will wean him off BiPAP to nasal oxygen as tolerated. HEAD: Normocephalic, atraumatic. LUNGS: Bilateral rales, decreased breath sounds bases. HEART: Regular rhythm. ABDOMEN: Noncontributory. EXTREMITIES: Absence of 2 toes and edematous legs. ASSESSMENT 1. Congestive heart failure. 2. Neuropathy. 3. Possible obstructive sleep apnea. 4. Anemia of chronic disease. PLAN: Diuresis. Defer thoracentesis. BiPAP at night as tolerated. Outpatient polysomnogram. Check pulmonary function tests before discharge, spirometry. Assess for home oxygen. Thank you for this kind referral. Job#: [id number] EV
--- NOTE | 2018-02-03 15:47 | Consultation ---
DATE OF CONSULTATION: February 03, 2018 CARDIOLOGY CONSULTATION REQUESTING PHYSICIAN: Dr. Medina REASON FOR CONSULTATION: Congestive heart failure. HISTORY OF PRESENT ILLNESS: This is a 72-year-old man with a history of hyperlipidemia, hypertension, and peripheral arterial disease, status post left SFA stent by Dr. Dover in April of 2013, who presents with complaints of shortness of breath. The patient had recently been hospitalized with osteomyelitis of the 2nd digit of the left foot and osteomyelitis of the 3rd digit on the right. He had been following with Dr. Medina for home IV antibiotics. He had been doing well until Tuesday afternoon when he developed shortness of breath. He also endorsed chest pain with deep inspiration and fleeting of sharp chest pain lasting seconds in the left upper chest that was 7/10 in severity. On questioning, he indicates that he has had lower extremity edema for the last week with chills and diaphoresis for the last 3-4 days. He denied any orthopnea or PND. REVIEW OF SYSTEMS: Negative except as per HPI. PAST MEDICAL HISTORY: Hypertension, hyperlipidemia, peripheral arterial disease, status post left SFA stent by Dr. Dover in 2012, ulcerative colitis, Crohn's disease, recent diagnosis of osteomyelitis, status post partial toe amputation and prolonged course of IV antibiotics. PAST SURGICAL HISTORY: L4-L5 back surgery, hernia repair, hemorrhoidectomy, left leg surgery times 2 secondary to trauma, toe amputation. ALLERGIES: NO KNOWN DRUG ALLERGIES. MEDICATIONS: Please see EMR. SOCIAL HISTORY: No tobacco or illicit drugs. He does drink alcohol socially. FAMILY HISTORY: Noncontributory. PHYSICAL EXAMINATION VITALS: Temperature 98.8 degrees, pulse 80, respiratory rate 24, blood pressure 114/51, and oxygen saturation 93% on 4 L nasal cannula. GENERAL: A well-developed, well-nourished man in no acute distress. HEENT: Normocephalic and atraumatic. Pupils equal. No scleral icterus. NECK: Supple. No thyromegaly or cervical lymphadenopathy. No carotid bruits. LUNGS: Clear to auscultation. No wheezes or crackles. CARDIOVASCULAR: Normal rate. Regular rhythm. No murmur. Normal S1 and S2. ABDOMEN: Soft and nontender. EXTREMITIES: Trace edema. NEURO: Nonfocal exam. LABS: WBC 7.9, hemoglobin 8, hematocrit 26, and platelets 192,000. Sodium 141, potassium 4.9, chloride 102, CO2 22, BUN 27, creatinine 0.89. BNP 815. Chest x-ray with mildly enlarged cardiomediastinal silhouette, bibasilar opacities, stable atelectasis or consolidation and pleural fluid. CT of chest no pulmonary emboli, small bilateral pleural effusion with associated atelectasis with mediastinal hilar lymph nodes. There is likely a superimposed component of infection in both lower lobes. Small sliding hiatal hernia. T11 compression deformity with 50% height loss. EKG is normal sinus rhythm. IMPRESSION 1. Volume overload. 2. Hypertension. 3. Hyperlipidemia. 4. History of peripheral arterial disease: Status post superficial femoral artery stent. 5. Crohn's disease. 6. Ulcerative colitis. RECOMMENDATIONS: Obtain echocardiogram. BNP is elevated. Agree with intravenous diuretics. Strict I's and O's and daily weights. Fluid and sodium restriction. Will check a fasting lipid panel and trend cardiac enzymes. The patient's blood pressure is controlled. Continue current cardiac medications at this time. Thank you for this consult. We will continue to follow. Job#: [id number] OZIEL
[2018-02-03] MEDS ORDERED: NON-FORMULARY MEDICATION (Lisinopril 10 MG) PO SCH (17:00)
[2018-02-03] MEDS ORDERED: NON-FORMULARY MEDICATION (Lisinopril 40 MG) PO SCH (17:00)
[2018-02-03] MEDS ORDERED: ATENOLOL 100 MG TAB PO SCH ×2 (17:00)
[2018-02-03] MEDS ORDERED: GABAPENTIN 300 MG CAP PO SCH (17:00)
[2018-02-03] MEDS: HEPARIN SOD (PORCINE) 5,000 UNIT/ML VIAL SC SCH (20:50)
[2018-02-03] MEDS: ATORVASTATIN 40 MG TAB PO SCH (20:50)
[2018-02-03] MEDS: GABAPENTIN 300 MG CAP PO SCH ×2 (20:50→22:02)
[2018-02-03] MEDS: NIFEDIPINE PO SCH (20:50)
[2018-02-03] MEDS ORDERED: NON-FORMULARY MEDICATION (Atorvastatin Calcium 40 MG) PO SCH (21:00)
[2018-02-04] VITALS (38 sets, daily range): BP systolic 98–159; BP diastolic 33–91
[2018-02-04] MEDS: ALBUTEROL SULF 0.083% NEB SOLN 3 ML NEB NEB SCH ×6 (02:30→23:06)
[2018-02-04] MEDS: IPRATROPIUM BROMIDE 0.02% 2.5 ML NEB NEB SCH ×4 (02:35→18:53)
[2018-02-04 05:55] LABS: BASOPHILS % 0.3 % (0.0-1.0); EOSINOPHILS # (AUTO) 0.1 (0.0-0.4); EOSINOPHILS % 1.6 % (0.0-6.0); LYMPHOCYTES # (AUTO) 1.3 (1.0-3.2); LYMPHOCYTES % 14.9 % (18.0-39.1); MEAN CORPUSCULAR HEMOGLOBIN 27.3 pg (28-32); MEAN CORPUSCULAR HGB CONC 30.8 g/dL (31-35); MEAN CORPUSCULAR VOLUME 88.7 fL (81-99); MONOCYTES # (AUTO) 0.7 (0.2-0.8); MONOCYTES % 7.8 % (4.4-11.3); NEUTROPHILS # (AUTO) 6.7 (2.1-6.9); NEUTROPHILS % 74.7 % (38.7-80.0); PLATELET COUNT 212 x10e3/uL (140-360); RED BLOOD COUNT 2.93 x10e6/uL (4.3-5.7); RED CELL DISTRIBUTION WIDTH 16.1 % (11.7-14.4)
--- NOTE | 2018-02-04 06:12 | Diagnostic Imaging Report ---
CHEST SINGLE (PORTABLE), 02/04/2018 7:00 AM Technique: CHEST SINGLE (PORTABLE) Comparison: Previous day Clinical history: Shortness of breath Findings: See Impression Impression: 1. Lines/Tubes: Right PICC is no longer seen. 2. Stable cardiomediastinal silhouette. 3. Persistent bibasilar opacities opacities, favor a component of atelectasis and layering pleural fluid. Signed by: Dr Trisha Bird MD on 02/04/2018 6:09 AM
[2018-02-04 06:16] LABS: ANION GAP 12.6 mmol/L (8-16); BLOOD UREA NITROGEN 25 mg/dL (7-26); BUN/CREATININE RATIO 26 (6-25); CALCIUM 8.6 mg/dL (8.4-10.2); CARBON DIOXIDE 26 mmol/L (22-29); CHLORIDE 108 mmol/L (98-107); CREATININE, SERUM 0.97 mg/dL (0.72-1.25); EST GLOMERULAR FILTRATION RATE > 60 ML/MIN (60-); GLUCOSE 105 mg/dL (74-118); POTASSIUM 3.6 mmol/L (3.5-5.1); SODIUM 143 mmol/L (136-145)
[2018-02-04] MEDS: INSULIN REGULAR, HUMAN 100 UNIT/1 ML 3ML VIAL SQ SCH (07:30)
[2018-02-04] MEDS ORDERED: LUTEIN PO SCH (09:00)
[2018-02-04] MEDS ORDERED: CALCIUM CARBONATE PO SCH (09:00)
[2018-02-04] MEDS ORDERED: MULTIVITAMIN W MINERALS PO SCH (09:00)
[2018-02-04] MEDS ORDERED: VITAMIN D3 PO SCH (09:00)
[2018-02-04] MEDS ORDERED: [UNRECOGNIZED DRUG - OTHER] PO SCH (09:00)
[2018-02-04] MEDS: MAGNESIUM OXIDE 400 MG TAB PO SCH (09:28)
[2018-02-04] MEDS: PANTOPRAZOLE SOD 40 MG TABEC PO SCH (09:28)
[2018-02-04] MEDS: FUROSEMIDE INJ 10 MG/ML 4 ML VIAL IV SCH ×2 (09:28→21:41)
[2018-02-04] MEDS: DICYCLOMINE HCL 20 MG TAB PO SCH (09:28)
[2018-02-04] MEDS: OYST-CAL-D 500MG TABLET PO SCH (09:28)
[2018-02-04] MEDS: MULTIVITAMINS/MINERALS TAB PO SCH (09:28)
[2018-02-04] MEDS: HEPARIN SOD (PORCINE) 5,000 UNIT/ML VIAL SC SCH ×2 (09:29→21:00)
[2018-02-04] MEDS: MESALAMINE 500 MG CAPCR PO SCH (09:33)
[2018-02-04] MEDS: LISINOPRIL 10 MG TAB PO SCH (10:19)
[2018-02-04] MEDS: ATENOLOL 50 MG TAB PO SCH ×2 (10:19→17:07)
[2018-02-04 11:40] LABS: % IRON SATURATION 6 % (15-50); IRON 15 ug/dL (65-175); TOTAL IRON BINDING CAPACITY 234 ug/dL (261-478); TRANSFERRIN 167 mg/dL (174-364)
--- NOTE | 2018-02-04 13:17 | Progress Note ---
DATE: February 04, 2018 CARDIOLOGY PROGRESS NOTE SUBJECTIVE: Remains short of breath. OBJECTIVE: VITAL SIGNS: Temperature 98.3, heart rate 86, respiratory rate 20, blood pressure 142/81, O2 sat 98% on high-flow nasal cannula. GENERAL: No acute distress. CHEST: With coarse breath sounds. CARDIOVASCULAR: Regular rate and rhythm. Normal S1 and S2. ABDOMEN: Soft. EXTREMITIES: Trace edema bilateral lower extremities. CARDIOVASCULAR MEDICATIONS: 1. Lisinopril 10 mg daily. 2. Atenolol 25 mg b.i.d. 3. Heparin 5000 units subcutaneous q.12 hours. 4. Furosemide 40 mg IV q.12 hours. 5. Nifedipine extended-release __45 mg nightly. 6. Atorvastatin 40 mg nightly. LABORATORY STUDIES: White blood cells 8.9, hemoglobin 8, platelets 212. Creatinine 0.97, potassium 3.6. Stool occult negative. Blood cultures negative times 48 hours. Studies reviewed. ASSESSMENT: 1. Volume overload. 2. Hypertension. 3. Dyslipidemia. 4. History of peripheral arterial disease status post left superficial femoral artery stent in 2012. 5. Crohn's disease versus ulcerative colitis. PLAN: No DVT on lower extremity ultrasound. Continue diuretics. Blood pressure adequately controlled. Improving on diuretics. Thoracentesis on hold. If decision to avoid thoracentesis altogether, resume aspirin. Job#: [id number] EV
[2018-02-04] MEDS: HYDROCODONE/APAP 5MG-325MG TAB PO PRN ×2 (13:37→22:10)
[2018-02-04] MEDS: IRON SUCROSE 100 MG in SODIUM CHLORIDE 0.9% 100 ML 100 ML IV SCH (19:40)
[2018-02-04] MEDS: GABAPENTIN 300 MG CAP PO SCH ×2 (20:10→21:41)
[2018-02-04] MEDS: NIFEDIPINE PO SCH (21:41)
[2018-02-04] MEDS: ATORVASTATIN 40 MG TAB PO SCH (21:41)
[2018-02-05] VITALS (20 sets, daily range): BP systolic 115–172; BP diastolic 62–88
[2018-02-05] MEDS: IPRATROPIUM BROMIDE 0.02% 2.5 ML NEB NEB SCH ×4 (03:15→19:52)
[2018-02-05] MEDS: ALBUTEROL SULF 0.083% NEB SOLN 3 ML NEB NEB SCH ×5 (03:15→19:52)
[2018-02-05 06:25] LABS: ANION GAP 12.5 mmol/L (8-16); BLOOD UREA NITROGEN 19 mg/dL (7-26); BUN/CREATININE RATIO 24 (6-25); CALCIUM 8.9 mg/dL (8.4-10.2); CARBON DIOXIDE 30 mmol/L (22-29); CHLORIDE 105 mmol/L (98-107); CREATININE, SERUM 0.78 mg/dL (0.72-1.25); EST GLOMERULAR FILTRATION RATE > 60 ML/MIN (60-); GLUCOSE 87 mg/dL (74-118); POTASSIUM 3.5 mmol/L (3.5-5.1); SODIUM 144 mmol/L (136-145)
[2018-02-05 07:32] LABS: BASOPHILS % 0.5 % (0.0-1.0); EOSINOPHILS # (AUTO) 0.3 (0.0-0.4); EOSINOPHILS % 4.6 % (0.0-6.0); HEMATOCRIT 26.7 % (38.2-49.6); HEMOGLOBIN 8.3 g/dL (14.0-18.0); LYMPHOCYTES # (AUTO) 1.3 (1.0-3.2); LYMPHOCYTES % 21.4 % (18.0-39.1); MEAN CORPUSCULAR HEMOGLOBIN 27.7 pg (28-32); MEAN CORPUSCULAR HGB CONC 31.1 g/dL (31-35); MONOCYTES # (AUTO) 0.6 (0.2-0.8); MONOCYTES % 10.1 % (4.4-11.3); NEUTROPHILS # (AUTO) 3.8 (2.1-6.9); NEUTROPHILS % 62.7 % (38.7-80.0); PLATELET COUNT 247 x10e3/uL (140-360); RED CELL DISTRIBUTION WIDTH 15.9 % (11.7-14.4)
[2018-02-05] MEDS: HEPARIN SOD (PORCINE) 5,000 UNIT/ML VIAL SC SCH (09:37)
[2018-02-05] MEDS: OYST-CAL-D 500MG TABLET PO SCH (09:38)
[2018-02-05] MEDS: MESALAMINE 500 MG CAPCR PO SCH (09:38)
[2018-02-05] MEDS: MULTIVITAMINS/MINERALS TAB PO SCH (09:38)
[2018-02-05] MEDS: MAGNESIUM OXIDE 400 MG TAB PO SCH (09:38)
[2018-02-05] MEDS: PANTOPRAZOLE SOD 40 MG TABEC PO SCH (09:38)
[2018-02-05] MEDS: FUROSEMIDE INJ 10 MG/ML 4 ML VIAL IV SCH ×2 (09:39→21:17)
[2018-02-05] MEDS: DICYCLOMINE HCL 20 MG TAB PO SCH (09:39)
[2018-02-05] MEDS: HYDROCODONE/APAP 5MG-325MG TAB PO PRN ×3 (09:57→23:23)
[2018-02-05] MEDS: LISINOPRIL 10 MG TAB PO SCH (10:01)
[2018-02-05] MEDS: ATENOLOL 50 MG TAB PO SCH ×2 (10:01→16:53)
--- NOTE | 2018-02-05 14:28 | Progress Note ---
DATE: February 05, 2018 CARDIOLOGY PROGRESS NOTE SUBJECTIVE: Short of breath; however, slightly improving. OBJECTIVE: VITAL SIGNS: Temperature 98.9, heart rate 70, respiratory rate 20, blood pressure 128/67, O2 sat 96% on nasal cannula at 6 liters per minute. GENERAL: No acute distress. CHEST: Decreased breath sounds. CARDIOVASCULAR: Regular rate and rhythm. Normal S1 and S2. ABDOMEN: Soft. EXTREMITIES: Trace edema bilateral lower extremities. CARDIOVASCULAR MEDICATIONS: 1. Lisinopril 10 mg daily. 2. Atenolol 25 mg b.i.d. 3. Furosemide 40 mg IV q.12 hours. 4. Nifedipine extended release 45 mg nightly. 5. Atorvastatin 40 mg nightly. STUDIES: White blood cells 6.1, hemoglobin 8.3, platelets 247. Sodium 144, potassium 3.5, chloride 105, bicarbonate 30, BUN 19, creatinine 0.78, glucose 87, calcium 8.9, magnesium none for today. ASSESSMENT: 1. Volume overload, improving. 2. Hypertension. 3. Dyslipidemia. 4. History of peripheral arterial disease, status post left superficial femoral artery stent in 2012. 5. Chronic disease versus ulcerative colitis. Continue diuretic trial. Still having episodes of drops in saturation. If persistent pleural effusion is found with diuretics, may be considered for thoracentesis. Defer to Pulmonary. Job#: [id number] EV
[2018-02-05] MEDS ORDERED: LINEZOLID 600 MG/D5W 300ML 300 ML IV SCH (18:45)
[2018-02-05] MEDS ORDERED: SODIUM CHLORIDE 0.9% 250ML 250 ML ONE (19:51)
[2018-02-05] MEDS: IRON SUCROSE 100 MG in SODIUM CHLORIDE 0.9% 100 ML 100 ML IV SCH (20:14)
[2018-02-05] MEDS: ATORVASTATIN 40 MG TAB PO SCH (21:17)
[2018-02-05] MEDS: NIFEDIPINE PO SCH (21:17)
[2018-02-05] MEDS: GABAPENTIN 300 MG CAP PO SCH ×2 (21:17→23:23)
[2018-02-05] MEDS: LINEZOLID 600 MG/D5W 300ML 300 ML IV SCH (21:17)
--- NOTE | 2018-02-05 21:18 | Progress Note ---
DATE: February 05, 2018 SUBJECTIVE: Mr. Kerns continued to be shortness of breath. He said he is feeling better, but if he takes the oxygen off, he gets short of breath. There is really no other complaints he has at the present time. There is no fever, no chills. Patient is being followed by cardiology as well as pulmonary. There is a plan for him to have thoracocentesis tomorrow. REVIEW OF SYSTEMS: There is nothing new. PHYSICAL EXAMINATION GENERAL: He is currently alert, oriented. He is out of ICU and comfortable. VITALS: Stable, afebrile. HEENT: Not very icteric. NECK: Supple. No JVD. No carotid bruit. No thyromegaly. CHEST: Clear bilaterally. HEART: S1, S2. No murmur. ABDOMEN: Soft. Bowel sounds present. No tenderness. EXTREMITIES: No edema. IMPRESSION 1. Shortness of breath. 2. Fluid overload, may be pneumonia. PLAN: His blood cultures are negative. His white count is normal. His chest CT showed there is no pulmonary embolism, small bilateral atelectasis, mediastinal lymph nodes may be infected. Patient is on atenolol, lisinopril, Lasix, gabapentin. I am going to add meropenem and Zyvox just in case he has pneumonia and we will see how he is going to do. We will follow. Job#: [id number]
[2018-02-05] MEDS: MEROPENEM 500 MG VIAL IV SCH (23:23)
[2018-02-06] MEDS ORDERED: MEROPENEM 500MG 500 MG in SODIUM CHLORIDE 0.9% 50ML 50 ML IV SCH ×2
[2018-02-06] MEDS: IPRATROPIUM BROMIDE 0.02% 2.5 ML NEB NEB SCH ×4 (00:10→20:57)
[2018-02-06] MEDS: ALBUTEROL SULF 0.083% NEB SOLN 3 ML NEB NEB SCH ×7 (00:10→23:35)
[2018-02-06 03:56] VITALS: BP 148/73
[2018-02-06] MEDS: MEROPENEM 500 MG VIAL IV SCH ×4 (05:40→23:05)
[2018-02-06 05:55] LABS: BASOPHILS % 0.4 % (0.0-1.0); EOSINOPHILS # (AUTO) 0.4 (0.0-0.4); EOSINOPHILS % 6.2 % (0.0-6.0); HEMATOCRIT 29.6 % (38.2-49.6); HEMOGLOBIN 9.1 g/dL (14.0-18.0); LYMPHOCYTES # (AUTO) 1.4 (1.0-3.2); LYMPHOCYTES % 20.4 % (18.0-39.1); MEAN CORPUSCULAR HEMOGLOBIN 27.1 pg (28-32); MEAN CORPUSCULAR HGB CONC 30.7 g/dL (31-35); MEAN CORPUSCULAR VOLUME 88.1 fL (81-99); MONOCYTES # (AUTO) 0.6 (0.2-0.8); MONOCYTES % 8.9 % (4.4-11.3); NEUTROPHILS # (AUTO) 4.3 (2.1-6.9); NEUTROPHILS % 63.1 % (38.7-80.0); PLATELET COUNT 228 x10e3/uL (140-360); RED BLOOD COUNT 3.36 x10e6/uL (4.3-5.7); RED CELL DISTRIBUTION WIDTH 15.4 % (11.7-14.4)
[2018-02-06 06:22] LABS: ANION GAP 12.9 mmol/L (8-16); BLOOD UREA NITROGEN 16 mg/dL (7-26); BUN/CREATININE RATIO 19 (6-25); CALCIUM 9.1 mg/dL (8.4-10.2); CARBON DIOXIDE 36 mmol/L (22-29); CHLORIDE 99 mmol/L (98-107); CREATININE, SERUM 0.83 mg/dL (0.72-1.25); EST GLOMERULAR FILTRATION RATE > 60 ML/MIN (60-); GLUCOSE 95 mg/dL (74-118); POTASSIUM 3.9 mmol/L (3.5-5.1); SODIUM 144 mmol/L (136-145)
[2018-02-06 08:00] VITALS: BP 152/87
[2018-02-06] MEDS: DICYCLOMINE HCL 20 MG TAB PO SCH (08:18)
[2018-02-06] MEDS: MULTIVITAMINS/MINERALS TAB PO SCH (08:18)
[2018-02-06] MEDS: FUROSEMIDE INJ 10 MG/ML 4 ML VIAL IV SCH ×2 (08:18→20:31)
[2018-02-06] MEDS: MAGNESIUM OXIDE 400 MG TAB PO SCH (08:18)
[2018-02-06] MEDS: PANTOPRAZOLE SOD 40 MG TABEC PO SCH (08:18)
[2018-02-06] MEDS: MESALAMINE 500 MG CAPCR PO SCH (08:18)
[2018-02-06] MEDS: ATENOLOL 50 MG TAB PO SCH ×2 (08:18→17:35)
[2018-02-06] MEDS: OYST-CAL-D 500MG TABLET PO SCH (08:18)
[2018-02-06] MEDS: LISINOPRIL 10 MG TAB PO SCH (08:18)
[2018-02-06] MEDS: HYDROCODONE/APAP 5MG-325MG TAB PO PRN ×3 (08:46→19:42)
[2018-02-06 09:00] VITALS: BP 152/87
[2018-02-06] MEDS ORDERED: SODIUM CHLORIDE 0.9% 250ML 250 ML ONE (09:49)
[2018-02-06] MEDS: LINEZOLID 600 MG/D5W 300ML 300 ML IV SCH ×2 (10:20→21:25)
[2018-02-06 12:19] VITALS: BP 138/82
--- NOTE | 2018-02-06 12:35 | Progress Note ---
DATE: February 06, 2018 CARDIOLOGY PROGRESS NOTE SUBJECTIVE: Patient denies chest pain or shortness of breath. He qualified for home O2. OBJECTIVE VITAL SIGNS: Temperature 98 degrees, pulse 77, respiratory rate 19, blood pressure 152/87, oxygen saturation 93% on 3 liters nasal cannula. GENERAL: Awake, alert, in no acute distress. LUNGS: Decreased breath sounds. No wheezes or crackles. CARDIOVASCULAR: Normal rate, regular rhythm. No murmur. Normal S1 and S2. ABDOMEN: Soft, nontender. EXTREMITIES: No edema. CARDIAC MEDICATIONS 1. Lisinopril 10 mg p.o. daily. 2. Atenolol 25 mg p.o. b.i.d. 3. Furosemide 40 mg IV q.12 h. 4. Atorvastatin 40 mg p.o. nightly. LABS: WBC 6.76, hemoglobin 9.1, hematocrit 29.6, platelets 228. Sodium 144, potassium 3.9, chloride 99, CO2 36, BUN 16, creatinine 0.83. TELEMETRY: Normal sinus rhythm. IMPRESSION 1. Volume overload, improving. 2. Hypertension. 3. Dyslipidemia. 4. History of peripheral arterial disease status post left superficial femoral artery stent in 2012. 5. Crohn's disease. 6. Ulcerative colitis. RECOMMENDATIONS: Continue intravenous diuretics. Strict I's and O's and daily weights. Patient's blood pressure is not well controlled. Titrate up lisinopril. Thank you for this consult. We will continue to follow. Job#: [id number] EV
--- NOTE | 2018-02-06 15:40 | Diagnostic Imaging Report ---
PROCEDURE:US CHEST (INCL MEDIASTINUM) COMPARISON:CT chest 02/02/18 INDICATIONS:Pleural effusion FINDINGS: Left pleural effusion is present with about 10 mm of separation between the visceral and parietal pleura. No significant amount of fluid in the right chest. Conclusion: Small left pleural effusion. Dictated by: Emma Conde M.D. on 02/06/2018 at 15:42 Electronically approved by: Emma Conde M.D. on 02/06/2018 at 15:42
[2018-02-06 16:00] VITALS: BP 161/82
[2018-02-06 19:28] VITALS: BP 150/74
[2018-02-06] MEDS: GABAPENTIN 300 MG CAP PO SCH ×2 (20:31→23:04)
[2018-02-06] MEDS: IRON SUCROSE 100 MG in SODIUM CHLORIDE 0.9% 100 ML 100 ML IV SCH (20:31)
[2018-02-06] MEDS: ATORVASTATIN 40 MG TAB PO SCH (20:32)
[2018-02-06] MEDS: NIFEDIPINE PO SCH (21:00)
[2018-02-07] MEDS: HYDROCODONE/APAP 5MG-325MG TAB PO PRN (00:04)
[2018-02-07 00:12] VITALS: BP 166/82
[2018-02-07] MEDS: ALBUTEROL SULF 0.083% NEB SOLN 3 ML NEB NEB SCH ×3 (03:30→14:40)
[2018-02-07] MEDS: IPRATROPIUM BROMIDE 0.02% 2.5 ML NEB NEB SCH ×3 (03:30→14:40)
[2018-02-07 04:30] VITALS: BP 132/73
[2018-02-07] MEDS: MEROPENEM 500 MG VIAL IV SCH ×2 (05:20→08:55)
[2018-02-07 07:00] VITALS: BP 125/69
[2018-02-07] MEDS: PANTOPRAZOLE SOD 40 MG TABEC PO SCH (08:53)
[2018-02-07] MEDS: FUROSEMIDE INJ 10 MG/ML 4 ML VIAL IV SCH (08:53)
[2018-02-07] MEDS: DICYCLOMINE HCL 20 MG TAB PO SCH (08:53)
[2018-02-07] MEDS: MESALAMINE 500 MG CAPCR PO SCH (08:53)
[2018-02-07] MEDS: MULTIVITAMINS/MINERALS TAB PO SCH (08:53)
[2018-02-07] MEDS: OYST-CAL-D 500MG TABLET PO SCH (08:53)
[2018-02-07] MEDS: MAGNESIUM OXIDE 400 MG TAB PO SCH (08:53)
[2018-02-07] MEDS: LISINOPRIL 10 MG TAB PO SCH (08:54)
[2018-02-07] MEDS: ATENOLOL 50 MG TAB PO SCH (08:55)
[2018-02-07] MEDS: LINEZOLID 600 MG/D5W 300ML 300 ML IV SCH (08:56)
[2018-02-07] MEDS ORDERED: ACETAMINOPHEN 325 MG TAB PO PRN (10:00)
--- NOTE | 2018-02-07 11:04 | Progress Note ---
DATE: February 07, 2018 CARDIOLOGY PROGRESS NOTE SUBJECTIVE: The patient denies chest pain. He continues to have shortness of breath. OBJECTIVE VITALS: Temperature 98.6 degrees, pulse 77, respiratory rate 20, blood pressure 125/69, oxygen saturation 98% on 3 L nasal cannula. GENERAL: Awake, alert and in no acute distress. LUNGS: Clear to auscultation bilaterally. No wheezes or crackles. CARDIOVASCULAR: Normal rate. Regular rhythm. No murmur. Normal S1 and S2. ABDOMEN: Soft and nontender. EXTREMITIES: No edema. CARDIAC MEDICATIONS 1. Atenolol 25 mg p.o. b.i.d. 2. Lisinopril 10 mg p.o. daily. 3. Furosemide 40 mg IV q.12 h. 4. Atorvastatin 40 mg p.o. at bedtime. LABS: None today. Telemetry is normal sinus rhythm. IMPRESSION 1. Volume overload, improving. 2. Hypertension. 3. Dyslipidemia. 4. History of pulmonary embolism: Status post left superficial femoral artery stent in 2012. 5. Crohn's disease. 6. Ulcerative colitis. RECOMMENDATIONS: IV antibiotics per infectious disease. Strict I's and O's, as well as daily weights. The patient continues to gradually diurese. Blood pressure improved with increase in lisinopril. Continue current cardiac medications. Thank you for this consult. We will continue to follow. Job#: [id number] OZIEL
[2018-02-07 12:29] VITALS: BP 125/69
--- NOTE | 2018-02-07 16:03 | Pulmonary Function Test ---
DATE OF STUDY: February 07, 2018 RESTRICTIVE SPIROMETRY: Forced vital capacity 1.41 L, 38% of predicted. FEV1 1.14 L, 42%. FEV1/FVC ratio 81%. [id number] 56%. A restrictive pattern. There is no significant change following inhalation of bronchodilators. Job#: [id number] RI
[2018-02-07 17:07] VITALS: BP 122/67
== END 2018-02-07 17:05 | disposition home or self-care (01) | DRG 193 ==
LOC: ER 11:53 → ERHOLD 17:33 → ICU 22:17 → IMCU 02-05 07:47
PROVIDERS: ADMIT Internal Medicine; ATTEND Internal Medicine
CPT/HCPCS: 36415; 36600; 71045; 71260; 76604; 80048; 80053; 80061; 81001; 82270; 82550; 82553; 82805; 82948; 83036; 83540; 83605; 83690; 83735; 83880; 84443; 84466; 84484; 85025; 85610; 85730; 87040; 87086; 87400; 93005; 93306; 93970; 94060; 94640; 94660; 97139; 99284; J0456; J1644; J1756; J1940; J2020; J2185; J2930; J7030; J7050; Q9967

== ENCOUNTER → 2018-03-10 | Outpatient (CLI) | payer BC ==
[~2018-03-10] MED LIST changes: +DICYCLOMINE HCL20 MG PO; +FERROUS SULFAT324 MG PO; +NIFEDIPINE ER90 MG PO
--- NOTE | 2018-03-24 16:09 | Polysomnography ---
DATE OF STUDY: March 10, 2018 POLYSOMNOGRAM REPORT This is a patient of Dr. Mack Pugh. Patient has a history of daytime hypersomnolence and loud snoring. This represents a split-night study. The patient is 5 feet 6 inches. [place] Sleepiness Score was elevated at 10. Neck size is 16 inches. He is 173 pounds. Body mass index is 28. The patient was monitored using standard EEG lead montage including electrooculogram, submentalis EMG, anterior tibialis EMG, nasal and oral thermistors, rib cage abdominal strain gauge monitor, pulse oximeter, F3-M2, F4-M1, C3-M2, C4-M1, O1-M2, O2-M1. This study was abnormal. During the initial study, which was a diagnostic study, which lasted 174 minutes, all stages of sleep were recorded. Sleep onset latency was 6-1/2 minutes. Sleep efficiency was reduced at 72%. There were 18 obstructive apneas, the longest in duration was 21 seconds, 1 central, 107 hypopneas. Respiratory event-related arousals were also noted. The patient's apnea-hypopnea index was 60. Respiratory disturbance index was 61 consistent with severe to very severe obstructive sleep apnea. The patient was titrated, starting with CPAP level of 5 cm of water pressure. This gradually increased to 13. At that point, central apneas were observed, and it was further titrated to a BiPAP S/T with a respiratory rate of 14, pressure of 13 cm of water pressure. BiPAP was set at a level of 17/12. A [employer] Brevida small mask was considered, but the better choice was felt to be the ResMed AirFit 10 medium mask. At this setting, apneas and hypopneas were essentially eliminated. Certainly, the patient should be warned not to drive when left untreated. Weight reduction should be part of the patient's therapeutic program. Examination of the nasopharynx and oropharynx should be considered if not performed recently as well as assay of thyroid function. Therapeutic options of distal uvulopalatopharyngoplasty include jaw advancement with uvulopalatopharyngoplasty and possibly tracheostomy. It is recommended that he be given a home trial of BiPAP at a level of 17/12 with S/T backup at 14. Heated humidification should be added to improve patient comfort and compliance. Thank you for this kind referral. SANDRA: 03/24/2018 14:37 Job#: [id number] GISELA
--- NOTE | 2018-03-24 16:22 | Polysomnography ---
DATE OF STUDY: POLYSOMNOGRAM REPORT ADDENDUM It is recommended the patient have a full face mask, ResMed AirFit F10 size medium. Job#: [id number] EV
== END | disposition home or self-care (01) ==
LOC: SLEEP 20:00
PROVIDERS: ATTEND Internal Medicine Pulmonary Disease
DX: G47.33 Obstructive sleep apnea (adult) (pediatric) (principal)
CPT/HCPCS: 95811

== ENCOUNTER → 2018-04-21 | Day surgery (SDC) | payer BC ==
[2018-04-20 16:23] LABS: BASOPHILS % 0.2 % (0.0-1.0); EOSINOPHILS # (AUTO) 0.1 (0.0-0.4); EOSINOPHILS % 1.2 % (0.0-6.0); HEMOGLOBIN 10.7 g/dL (14.0-18.0); LYMPHOCYTES # (AUTO) 1.8 (1.0-3.2); LYMPHOCYTES % 19.3 % (18.0-39.1); MEAN CORPUSCULAR HEMOGLOBIN 27.7 pg (28-32); MEAN CORPUSCULAR HGB CONC 32.4 g/dL (31-35); MEAN CORPUSCULAR VOLUME 85.5 fL (81-99); MONOCYTES # (AUTO) 0.9 (0.2-0.8); MONOCYTES % 9.6 % (4.4-11.3); NEUTROPHILS # (AUTO) 6.3 (2.1-6.9); PLATELET COUNT 131 x10e3/uL (140-360); RED BLOOD COUNT 3.86 x10e6/uL (4.3-5.7); RED CELL DISTRIBUTION WIDTH 16.3 % (11.7-14.4)
[2018-04-20 16:38] LABS: ANION GAP 14.7 mmol/L (8-16); BLOOD UREA NITROGEN 21 mg/dL (7-26); BUN/CREATININE RATIO 21 (6-25); CALCIUM 9.4 mg/dL (8.4-10.2); CARBON DIOXIDE 23 mmol/L (22-29); CHLORIDE 107 mmol/L (98-107); CREATININE, SERUM 1.01 mg/dL (0.72-1.25); EST GLOMERULAR FILTRATION RATE > 60 ML/MIN (60-); GLUCOSE 113 mg/dL (74-118); POTASSIUM 4.7 mmol/L (3.5-5.1); SODIUM 140 mmol/L (136-145)
[~2018-04-21] MED LIST changes: +BACITRACIN 50,000 UNIT VIAL ONE; +BUPIVACAINE HCL 0.5% 10ML MPF VIAL INJ ONE; +CEPHALEXIN500 MG PO; +CLINDAMYCIN PHOS 900MG/ D5W 50 50 ML IV ONE; +DEXAMETHASONE SOD PHOS INJ 4 MG/ML VIAL ONE; +KETOROLAC TROMETHAMINE 30 MG/ML VIAL ONE; +LIDOCAINE HCL 2% LOCAL INJ 5 ML SDV VIAL INJ ONE; +MUPIROCIN 2% OINT 22 GM TUBE ONE; +NAPROXEN250 MG PO; +ONDANSETRON HCL INJ 2 MG/ML VIAL ONE; +PROPOFOL IV EMULSION 10 MG/ML 20 ML VIAL ONE; +SEVOFLURANE INHAL SOLN 250 ML PEN BTL ONE
--- NOTE | 2018-04-21 18:16 | Operative Report ---
DATE OF PROCEDURE: April 21, 2018 PREOPERATIVE DIAGNOSES 1. Osteomyelitis and cellulitis, 4th digit right foot, with rigid contracture. 2. Osteomyelitis and cellulitis with rigid contracture, 3rd digit left foot. POSTOPERATIVE DIAGNOSES 1. Osteomyelitis and cellulitis, 4th digit right foot, with rigid contracture. 2. Osteomyelitis and cellulitis with rigid contracture, 3rd digit left foot. TITLE OF OPERATION 1. Amputation of 4th digit, right foot. 2. Amputation 3rd digit, left foot. ANESTHESIA: General endotracheal. HEMOSTASIS: Left and right ankle tourniquets at 250 mmHg. PROCEDURE IN DETAIL: The patient was taken to the operating room in a mildly sedated state and placed upon the operating table in supine position. Following induction of general anesthetic, the right lower extremity was elevated 60 degrees to exsanguinate before inflating the pneumatic thigh tourniquet to 250 mmHg for hemostasis. Right lower extremity was approached and a 4th digital lesion was noted on the right foot. This was the distal aspect draining and open with exposed bone. Two converging semielliptical incisions were made after radiographs were taken to confirm and the digit was dissected free from the area. Irrigated with copious amounts of sterile saline solution. The deep bone and soft tissue cultures were then taken. The area after irrigation with antibiotic solution was closed with 3-0 Vicryl and 4-0 nylon. Attention was then directed to the left foot where a similar condition existed on the 3rd digit of the left foot. Two converging semielliptical incisions were made overlying the 3rd digit of the left foot, which allowed for amputation of that digit as well. The base was noted to be red, cellulitic, and hypertrophic. Deep wound culture and sensitivity was performed of the bone remaining and after irrigation with copious amounts of sterile saline along with antibiotic ointment, deep closure was obtained with 3-0 Vicryl. Then, a 4-0 nylon was used for the remaining suturing and patient tolerated both anesthetic and procedure very well. Block with 0.5 Marcaine was performed. Human tissue allograft was injected to facilitate healing. The patient left the operating room in postoperative shoes for partial weightbearing. Return to see me within 1 week postoperatively. Job#: [id number] SUB
== END | disposition home or self-care (01) ==
LOC: OR 08:54
PROVIDERS: ATTEND Podiatrist Foot Surgery
DX: M86.172 Other acute osteomyelitis, left ankle and foot (principal); M86.171 Other acute osteomyelitis, right ankle and foot; L03.116 Cellulitis of left lower limb; L03.115 Cellulitis of right lower limb; M20.5X2 Other deformities of toe(s) (acquired), left foot; M20.5X1 Other deformities of toe(s) (acquired), right foot; G62.9 Polyneuropathy, unspecified; E11.9 Type 2 diabetes mellitus without complications; I10 Essential (primary) hypertension; G47.33 Obstructive sleep apnea (adult) (pediatric); Z88.8 Allergy status to other drugs, medicaments and biological substances; Z01.812 Encounter for preprocedural laboratory examination
CPT/HCPCS: 28825 ×2; 36415; 76000; 80048; 85025; 87071; 87075; 87186; 87205; 88305; 88311; J1100; J1885; J2001; J2405; Q4100

== ENCOUNTER → 2021-08-07 | Day surgery (SDC) | payer BC, MEDICARE ==
[2021-08-05 14:44] LABS: BASOPHILS % 0.3 % (0.0-1.0); EOSINOPHILS % 0.2 % (0.0-6.0); HEMATOCRIT 37.8 % (38.2-49.6); HEMOGLOBIN 12.3 g/dL (14.0-18.0); LYMPHOCYTES # (AUTO) 1.6 (1.0-3.2); LYMPHOCYTES % 12.2 % (18.0-39.1); MEAN CORPUSCULAR HEMOGLOBIN 29.4 pg (28-32); MEAN CORPUSCULAR HGB CONC 32.5 g/dL (31-35); MEAN CORPUSCULAR VOLUME 90.2 fL (81-99); MONOCYTES # (AUTO) 0.3 (0.2-0.8); MONOCYTES % 2.3 % (4.4-11.3); NEUTROPHILS # (AUTO) 10.5 (2.1-6.9); NEUTROPHILS % 80.6 % (38.7-80.0); PLATELET COUNT 218 x10e3/uL (140-360); RED BLOOD COUNT 4.19 x10e6/uL (4.3-5.7); RED CELL DISTRIBUTION WIDTH 13.3 % (11.7-14.4)
[2021-08-05 16:17] LABS: ANION GAP 16.6 mmol/L (8-16); CALCIUM 9.2 mg/dL (8.4-10.2); CREATININE, SERUM 2.03 mg/dL (0.72-1.25); POTASSIUM 5.6 mmol/L (3.5-5.1)
[~2021-08-07] MED LIST changes: -BACITRACIN 50,000 UNIT VIAL ONE; +BACTRIM DS TAB1 EACH PO; -BUPIVACAINE HCL 0.5% 10ML MPF VIAL INJ ONE; +BUPIVACAINE HCL 0.5% INJ 30 ML VIAL INJ ONE; -CLINDAMYCIN PHOS 900MG/ D5W 50 50 ML IV ONE; +DEXAMETHASONE SOD PHOS INJ 4 MG/ML SDV ONE; -DEXAMETHASONE SOD PHOS INJ 4 MG/ML VIAL ONE; -KETOROLAC TROMETHAMINE 30 MG/ML VIAL ONE; -LIDOCAINE HCL 2% LOCAL INJ 5 ML SDV VIAL INJ ONE; +METHOCARBAMOL750 MG PO; +MULTI-VITAMIN1 EACH PO; -MUPIROCIN 2% OINT 22 GM TUBE ONE; -ONDANSETRON HCL INJ 2 MG/ML VIAL ONE; +ONDANSETRON HCL INJ 2MG/ML 2ML 2 MG/ML VIAL ONE; +POVIDONE IODINE 0.05% 0.05 % ML PO ONE; +SMZ PO; +SODIUM CHLORIDE 0.9% 50ML 100 ML ONE; +[UNRECOGNIZED DRUG - OTHER] PO
[2021-08-07 11:35] VITALS: BP 156/77
== END | disposition home or self-care (01) ==
LOC: OR 06:13
PROVIDERS: ATTEND Podiatrist Foot Surgery
DX: M86.171 Other acute osteomyelitis, right ankle and foot (principal); M86.671 Other chronic osteomyelitis, right ankle and foot; J44.9 Chronic obstructive pulmonary disease, unspecified; I12.9 Hypertensive chronic kidney disease with stage 1 through stage 4 chronic kidney disease, or unspecified chronic kidney disease; N18.9 Chronic kidney disease, unspecified; Z01.810 Encounter for preprocedural cardiovascular examination; Z01.812 Encounter for preprocedural laboratory examination; Z01.818 Encounter for other preprocedural examination; Z20.822 Contact with and (suspected) exposure to COVID-19; Z79.899 Other long term (current) drug therapy; Z87.891 Personal history of nicotine dependence
CPT/HCPCS: 28820 ×2; 36415 ×2; 71046; 76000; 80048; 82948; 85025; 87071; 87075; 87205; 88304; 88311; 93005 ×2; J0690; J1100; U0002; 88305; J2405

== ENCOUNTER → 2024-07-25 | Outpatient (REF) | payer MEDICARE ==
[~2024-07-25] MED LIST changes: -BUPIVACAINE HCL 0.5% INJ 30 ML VIAL INJ ONE; -DEXAMETHASONE SOD PHOS INJ 4 MG/ML SDV ONE; -ONDANSETRON HCL INJ 2MG/ML 2ML 2 MG/ML VIAL ONE; -POVIDONE IODINE 0.05% 0.05 % ML PO ONE; -PROPOFOL IV EMULSION 10 MG/ML 20 ML VIAL ONE; -SEVOFLURANE INHAL SOLN 250 ML PEN BTL ONE; -SODIUM CHLORIDE 0.9% 50ML 100 ML ONE
[2024-07-25 13:34] LABS: CREATININE, SERUM 0.91 mg/dL (0.72-1.25)
== END ==
LOC: CT 12:42
PROVIDERS: ATTEND Internal Medicine Interventional Cardiology
DX: I70.219 Atherosclerosis of native arteries of extremities with intermittent claudication, unspecified extremity (principal)
CPT/HCPCS: 36415; 75635; 82565; 84520